=== PATIENT | female | born 2000 | race Caucasian/White ===

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

== ENCOUNTER 2018-01-21 20:31 | Emergency (ER) | payer BC ==
[~2018-01-21] VITALS: Ht 167.6 cm; Wt 81.6 kg
[~2018-01-21 20:31] MED LIST changes: +TRAZ-189 PO; -TRAZ-28 PO
--- NOTE | 2018-01-21 20:54 | ED Neurological Problem ---
General Chief Complaint: Neurological Problems Stated Complaint: SEIZURE/R SIDE PAIN/INJ Source: patient Exam Limitations: no limitations History of Present Illness Date Seen by Provider: Jan 21, 2018 Time Seen by Provider: 20:52 Initial Comments To ER per private vehicle from the dorms at [facility] [employer] [facility] with reports of seizure activity. She has a known seizure disorder and takes medication for this. Tonight she had one of her typical seizures, fell and struck the right side of her chest on something. She has pain to the right lateral lower chest wall. EMS was on scene but she refused EMS transport. Timing/Duration: 1-3 hours Allergies and Home Medications Allergies Coded Allergies: Sulfa (Sulfonamide Antibiotics) (Unverified Adverse Reaction, Unknown, ) Home Medications Lamotrigine 100 Mg Tablet, 100 MG PO BID, (Reported) Topiramate 100 Mg Tablet, 100 MG PO BID, (Reported) Trazodone HCl 50 Mg Tablet, 50 MG PO HS, (Reported) Patient Home Medication List Home Medication List Reviewed: Yes Review of Systems Review of Systems Constitutional: see HPI Eyes: No Symptoms Reported Ears, Nose, Mouth, Throat: no symptoms reported Respiratory: no symptoms reported Cardiovascular: no symptoms reported Genitourinary: no symptoms reported Musculoskeletal: no symptoms reported Skin: no symptoms reported Psychiatric/Neurological: See HPI, Tonic Clonic Seizures Endocrine: No Symptoms Reported Past Vduxszk-Jwuwcf-Fkwowu Hx Patient Social History 2nd Hand Smoke Exposure: No Recent Foreign Travel: No Contact w/Someone Who Travel: No Recent Hopitalizations: No Immunizations Up To Date PED Vaccines UTD: Yes Seasonal Allergies Seasonal Allergies: No Past Medical History Surgeries: Yes Gallbladder Respiratory: No Cardiac: No Neurological: Yes (SEIZURES SINCE AGE 14) Headaches /Migraines, Seizure Disorder Female Reproductive Disorders: Denies Genitourinary: No Gastrointestinal: No Musculoskeletal: No Endocrine: No HEENT: No Cancer: No Psychosocial: No Integumentary: No Blood Disorders: No Family Medical History No Pertinent Family Hx Physical Exam Vital Signs Vital Signs - First Documented 01/21/18 20:35 Temp 97.8 Pulse 80 Resp 18 B/P (MAP) 128/76 O2 Delivery Room Air Capillary Refill : Height, Weight, BMI Height: 5'6.00" Weight: 180lbs. oz. 81.090010ko; 28.12 BMI Method:Stated General Appearance: WD/WN, no apparent distress, other (lethargic but keeps her eyes open and converses with me. oriented to person place time and situation) HEENT: PERRL/EOMI, normal ENT inspection, TMs normal Neck: non-tender, full range of motion Respiratory: no respiratory distress, no accessory muscle use, other (there is a palm sized abrasion to the right lateral lower chest wall with tenderness to palpation.) Cardiovascular: regular rate, rhythm, no murmur Gastrointestinal: normal bowel sounds, non tender, soft Neurologic/Psychiatric: alert, normal mood/affect, oriented x 3 Crainal Nerves: normal hearing, normal speech, PERRL Skin: normal color, warm/dry Progress/Results/Core Measures Results/Orders My Orders Orders - ROBERTO BOWEN APRN Ribs/Unilateral With Chest (01/21/18 20:50) Vital Signs/I&O 01/21/18 20:35 Temp 97.8 Pulse 80 Resp 18 B/P (MAP) 128/76 O2 Delivery Room Air Departure Impression Primary Impression: Chest wall contusion Additional Impression: Seizure disorder Disposition: 01 HOME, SELF-CARE Condition: Stable Departure-Patient Inst. Decision time for Depature: 21:38 Referrals: [facility] (PCP/Family) Primary Care Physician Patient Instructions: Contusion (DC), Seizures, Adult (DC) Add. Discharge Instructions: 1. Tylenol and Motrin for pain control 2. Return to ER for any lightheadedness shortness of breath worsening pain or other concerns. All discharge instructions reviewed with patient and/or family. Voiced understanding. ROBERTO BOWEN APRN Jan 21, 2018 20:54
--- NOTE | 2018-01-21 21:39 | Diagnostic Imaging Report ---
INDICATION: Seizure and right rib pain. TIME OF EXAM: 9:39 PM FINDINGS: No displaced rib fracture is identified. No parenchymal contusion is seen. No effusion or pneumothorax is identified. IMPRESSION: No acute feature is detected. Dictated by: Dictated on workstation # [id number]
== END 2018-01-21 21:48 | disposition home or self-care (01) ==
LOC: EDUNIT# 20:31 → ER 20:32
DX: S20.211A Contusion of right front wall of thorax, initial encounter (principal); G40.909 Epilepsy, unspecified, not intractable, without status epilepticus; G43.909 Migraine, unspecified, not intractable, without status migrainosus; Z88.2 Allergy status to sulfonamides; W19.XXXA Unspecified fall, initial encounter; W22.09XA Striking against other stationary object, initial encounter
CPT/HCPCS: 71101

== ENCOUNTER 2018-02-11 17:55 | Emergency (ER) | payer BC ==
[~2018-02-11] VITALS: Ht 167.6 cm; Wt 81.6 kg
[2018-02-11] MEDS ORDERED: KETOROLAC 60 MG/2 ML VIAL IM STA (18:19)
--- NOTE | 2018-02-11 18:29 | ED Neurological Problem ---
General Chief Complaint: Neurological Problems Stated Complaint: OSMANFELL ON STEP STOOL,SOB Source: patient Exam Limitations: no limitations History of Present Illness Date Seen by Provider: Feb 11, 2018 Time Seen by Provider: 18:15 Initial Comments Here with report of seizure at home today. She apparently fell onto a small plastic step stool and hit her chest centrally in the right upper side. She does have known seizure disorder and states that she is taking her meds as directed. She is a student at [employer]. Last seizure was approximately a month ago. It is not, and she was seen multiple times during the last school year for breakthrough seizures. Denies other injury. Did have prodrome of nosebleed which is typical for her. Seizure apparently lasted several minutes. This is described as her clutching to her chest or her throat. Timing/Duration: episodic, other (onset approximately an hour ago and resolved. Anterior chest wall pain continues.) Severity: moderate Associated Symptoms: No fatigue, No muscle spasms, No nausea/vomiting, No vision changes, No weakness Allergies and Home Medications Allergies Coded Allergies: Sulfa (Sulfonamide Antibiotics) (Unverified Adverse Reaction, Unknown, ) Home Medications Lamotrigine 100 Mg Tablet, 100 MG PO BID, (Reported) Topiramate 100 Mg Tablet, 100 MG PO BID, (Reported) Trazodone HCl 50 Mg Tablet, 50 MG PO HS, (Reported) Patient Home Medication List Home Medication List Reviewed: Yes Review of Systems Review of Systems Constitutional: see HPI; No chills, No fever Eyes: No Symptoms Reported Ears, Nose, Mouth, Throat: see HPI, epistaxis; denies mouth swelling, denies loose teeth Respiratory: No cough; other (mild pain with deep breathing) Cardiovascular: see HPI, chest pain (anterior upper right sided); No palpitations Gastrointestinal: No abdominal pain, No nausea, No vomiting LMP: Feb 11, 2018 Musculoskeletal: joint pain, muscle pain Skin: no symptoms reported Psychiatric/Neurological: See HPI; Denies Headache; Tonic Clonic Seizures Past Qgjhhfs-Jrirhx-Nlbwjm Hx Past Med/Social Hx: Reviewed Nursing Past Med/Soc Hx Patient Social History Alcohol Use: Denies Use Recreational Drug Use: No Smoking Status: Never a Smoker 2nd Hand Smoke Exposure: No Recent Foreign Travel: No Contact w/Someone Who Travel: No Recent Hopitalizations: No Physical Abuse: No Sexual Abuse: No Immunizations Up To Date PED Vaccines UTD: Yes Seasonal Allergies Seasonal Allergies: No Past Medical History Surgeries: Yes Gallbladder Respiratory: No Cardiac: No Neurological: Yes (SEIZURES SINCE AGE 14) Headaches /Migraines, Seizure Disorder Female Reproductive Disorders: Denies Genitourinary: No Gastrointestinal: No Musculoskeletal: No Endocrine: No HEENT: No Cancer: No Psychosocial: No Integumentary: No Blood Disorders: No Family Medical History Reviewed Nursing Family Hx No Pertinent Family Hx Physical Exam Vital Signs Vital Signs - First Documented 02/11/18 18:15 Temp 98.5 Pulse 86 Resp 18 B/P (MAP) 147/79 Capillary Refill : Height, Weight, BMI Height: 5'6.00" Weight: 180lbs. oz. 81.369132th; 28.12 BMI Method:Stated General Appearance: WD/WN, no apparent distress HEENT: PERRL/EOMI, pharynx normal, other (old blood noted bilateral naris without active bleeding) Neck: non-tender, full range of motion, supple, normal inspection Respiratory: lungs clear, normal breath sounds, other (tender to the right upper anterior chest wall without deformity or contusion noted.) Cardiovascular: regular rate, rhythm, no murmur Gastrointestinal: non tender, soft Back: normal inspection, no CVA tenderness, no vertebral tenderness Neurologic/Psychiatric: alert, oriented x 3 Crainal Nerves: normal hearing, normal speech, PERRL Coordination/Gait: normal gait Motor/Sensory: no motor deficit, no sensory deficit Skin: normal color, warm/dry; No ecchymosis Progress/Results/Core Measures Results/Orders My Orders Orders - MARCO BOLTON MD Ketorolac Injection (Toradol Injection) (02/11/18 18:19) Ribs, Right 2-3 Views (02/11/18 18:19) Chest Pa/Lat (2 View) (02/11/18 ) Vital Signs/I&O 02/11/18 18:15 Temp 98.5 Pulse 86 Resp 18 B/P (MAP) 147/79 Progress Progress Note : Progress Note Seen and evaluated. Chest x-ray and right rib series ordered. Toradol 60 mg IM ordered. Monitor patient. 1913: No acute findings. Overall much better. Discharged home with return precautions. Patient verbalized understanding instructions and agreement with plan. Diagnostic Imaging Diagonstic Imaging: Xray Plain Films/CT/US/NM/MRI: chest Comments NAME: ESCOBAR ODOM [facility] REC#: [id number] PT STATUS: REG ER : 2000 PHYSICIAN: MARCO BOLTON MD ADMIT DATE: 02/11/18/ER Signed Date of Exam: 02/11/18 CHEST PA/LAT (2 VIEW) INDICATION: Seizure. Sternal and right rib pain. EXAMINATION: PA and lateral views of the chest. FINDINGS: The heart size and vascularity are normal. Lungs are clear. There is no effusion. There is no acute bony abnormality. IMPRESSION: No acute abnormality is seen. There is no change from 01/21/2018. Dictated by: Dictated on workstation # [id number] Dict: 02/11/181900 Trans: 02/11/181902 Interpreted by: ISABELA RIVERA MD Electronically signed by: ISABELA RIVERA MD 02/11/181902 Diagonstic Imaging: Xray Plain Films/CT/US/NM/MRI: other Comments NAME: ESCOBAR ODOM [facility] REC#: [id number] PT STATUS: REG ER : 2000 PHYSICIAN: MARCO BOLTON MD ADMIT DATE: 02/11/18/ER Signed Date of Exam: 02/11/18 RIBS, RIGHT 2-3 VIEWS INDICATION: Seizure, right rib pain. FINDINGS: Three views of the right ribs show no fracture or other acute bony abnormality. There is no effusion or pneumothorax. IMPRESSION: Normal right ribs. Dictated by: Dictated on workstation # [id number] Dict: 02/11/181858 Trans: 02/11/181904 Interpreted by: ISABELA RIVERA MD Electronically signed by: ISABELA RIVERA MD 02/11/181904 Departure Impression Primary Impression: Chest wall contusion Qualified Codes: S20.211A - Contusion of right front wall of thorax, initial encounter Additional Impression: Seizure Disposition: 01 HOME, SELF-CARE Condition: Improved Departure-Patient Inst. Decision time for Depature: 19:14 Referrals: [facility] (PCP/Family) Primary Care Physician Patient Instructions: CHEST CONTUSION, Seizures, Adult (DC) Add. Discharge Instructions: All discharge instructions reviewed with patient and/or family. Voiced understanding. You may take ibuprofen 600 or 800 mg every 8 hours as needed for pain. You may take Tylenol/acetaminophen 1000 mg every 8 hours as needed for pain. Continue your seizure medications. Follow-up with your Dr. in a few days for recheck. Return for worse pain, fever, vomiting, weakness, breathing problems or other concerns as needed. Drink plenty of fluids. Copy Copies To 1: VICTORIA CARVER MD, TIMOTHY D MD Feb 11, 2018 18:29
--- NOTE | 2018-02-11 19:04 | Diagnostic Imaging Report ---
INDICATION: Seizure. Sternal and right rib pain. EXAMINATION: PA and lateral views of the chest. FINDINGS: The heart size and vascularity are normal. Lungs are clear. There is no effusion. There is no acute bony abnormality. IMPRESSION: No acute abnormality is seen. There is no change from 01/21/2018. Dictated by: Dictated on workstation # [id number]
--- NOTE | 2018-02-11 19:05 | Diagnostic Imaging Report ---
INDICATION: Seizure, right rib pain. FINDINGS: Three views of the right ribs show no fracture or other acute bony abnormality. There is no effusion or pneumothorax. IMPRESSION: Normal right ribs. Dictated by: Dictated on workstation # [id number]
[2018-02-11 19:18] VITALS: BP 147/79
== END 2018-02-11 19:18 | disposition home or self-care (01) ==
LOC: EDUNIT# 17:55 → ER 17:57
DX: S20.211A Contusion of right front wall of thorax, initial encounter (principal); G40.909 Epilepsy, unspecified, not intractable, without status epilepticus; G43.909 Migraine, unspecified, not intractable, without status migrainosus; Z88.2 Allergy status to sulfonamides; W01.190A Fall on same level from slipping, tripping and stumbling with subsequent striking against furniture, initial encounter; Y92.009 Unspecified place in unspecified non-institutional (private) residence as the place of occurrence of the external cause
CPT/HCPCS: 71046; 71100; 96372

== ENCOUNTER 2018-02-25 21:06 | Emergency (ER) | payer BC ==
[~2018-02-25] VITALS: Ht 167.6 cm; Wt 81.6 kg
[2018-02-25 21:23] LABS: BASOPHILS % (AUTO) 0 % (0-10); EOSINOPHILS # (AUTO) 0.1 10^3/uL (0.0-0.3); EOSINOPHILS % (AUTO) 1 % (0-10); HEMATOCRIT 41 % (35-52); HEMOGLOBIN 13.6 G/DL (11.5-16.0); LYMPHOCYTES # (AUTO) 2.9 X 10^3 (1.0-4.0); LYMPHOCYTES % (AUTO) 35 % (12-44); MEAN CORPUSCULAR HEMOGLOBIN 29 PG (25-34); MEAN CORPUSCULAR HGB CONC 33 G/DL (32-36); MEAN CORPUSCULAR VOLUME 87 FL (80-99); MEAN PLATELET VOLUME 9.1 FL (7.4-10.4); MONOCYTES # (AUTO) 0.8 X 10^3 (0.0-1.0); MONOCYTES % (AUTO) 9 % (0-12); NEUTROPHILS # (AUTO) 4.7 X 10^3 (1.8-7.8); NEUTROPHILS % (AUTO) 56 % (42-75); PLATELET COUNT 306 10^3/uL (130-400); RED BLOOD COUNT 4.67 10^6/uL (4.35-5.85); RED CELL DISTRIBUTION WIDTH 12.2 % (10.0-14.5); WHITE BLOOD COUNT 8.5 10^3/uL (4.3-11.0)
[2018-02-25 21:40] LABS: ALANINE AMINOTRANSFERASE 20 U/L (0-55); ALBUMIN 4.4 GM/DL (3.2-4.5); ALKALINE PHOSPHATASE 88 U/L (40-136); BILIRUBIN,TOTAL 0.3 MG/DL (0.1-1.0); BUN/CREATININE RATIO 12; CALCIUM 9.9 MG/DL (8.5-10.1); CARBON DIOXIDE 23 MMOL/L (21-32); CHLORIDE 102 MMOL/L (98-107); CREATININE SERUM 0.82 MG/DL (0.60-1.30); GFR ESTIMATED > 60; GLUCOSE 106 MG/DL (70-105); POTASSIUM 3.7 MMOL/L (3.6-5.0); SODIUM 137 MMOL/L (135-145); TOTAL PROTEIN 8.5 GM/DL (6.4-8.2)
[2018-02-25 21:42] LABS: BILIRUBIN,URINE NEGATIVE (NEGATIVE); CLARITY,URINE CLEAR; COLOR,URINE YELLOW; GLUCOSE, URINE (UA) NEGATIVE (NEGATIVE); KETONES,URINE NEGATIVE (NEGATIVE); LEUKOCYTE ESTERASE ,URINE NEGATIVE (NEGATIVE); NITRITE,URINE NEGATIVE (NEGATIVE); PH,URINE 7 (5-9); PROTEIN,URINE NEGATIVE (NEGATIVE); UROBILINOGEN,URINE NORMAL (NORMAL)
[2018-02-25 21:57] LABS: BACTERIA,URINE MODERATE /HPF; RBC,URINE 0-2 /HPF; WBC,URINE 0-2 /HPF
--- NOTE | 2018-02-25 22:20 | ED Neurological Problem ---
General Chief Complaint: Neurological Problems Stated Complaint: SEIZURE Source: patient Exam Limitations: no limitations History of Present Illness Date Seen by Provider: Feb 25, 2018 Time Seen by Provider: 21:07 Initial Comments The patient is a 17 year old female who present to the emergency room with reports of a seizure in her dorm room this evening and a second seizure in the car prior to coming into the ER. She has a known seizure disorder and reports taking Lamictal for seizures. She has an appointment with her neurologist next week. She is alert and oriented on arrival to the emergency room. Timing/Duration: 1/2 hour Associated Symptoms: seizures Allergies and Home Medications Allergies Coded Allergies: Sulfa (Sulfonamide Antibiotics) (Unverified Adverse Reaction, Unknown, ) Home Medications Lamotrigine 100 Mg Tablet, 100 MG PO BID, (Reported) Topiramate 100 Mg Tablet, 100 MG PO BID, (Reported) Trazodone HCl 50 Mg Tablet, 50 MG PO HS, (Reported) Patient Home Medication List Home Medication List Reviewed: Yes Review of Systems Review of Systems Constitutional: no symptoms reported, see HPI Psychiatric/Neurological: See HPI, Tonic Clonic Seizures All Other Systems Reviewed Negative Unless Noted: Yes Past Sqzilzx-Hyeuit-Rwfmxr Hx Past Med/Social Hx: Reviewed Nursing Past Med/Soc Hx Patient Social History 2nd Hand Smoke Exposure: No Recent Foreign Travel: No Contact w/Someone Who Travel: No Recent Hopitalizations: No Immunizations Up To Date PED Vaccines UTD: Yes Seasonal Allergies Seasonal Allergies: No Past Medical History Surgeries: Yes Gallbladder Respiratory: No Cardiac: No Neurological: Yes (SEIZURES SINCE AGE 14) Headaches /Migraines, Seizure Disorder Female Reproductive Disorders: Denies Genitourinary: No Gastrointestinal: No Musculoskeletal: No Endocrine: No HEENT: No Cancer: No Psychosocial: No Integumentary: No Blood Disorders: No Family Medical History Reviewed Nursing Family Hx No Pertinent Family Hx Physical Exam Vital Signs Vital Signs - First Documented 02/25/18 02/25/18 21:10 22:45 Temp 98.6 Pulse 89 Resp 12 B/P (MAP) 125/80 Pulse Ox 98 Capillary Refill : Height, Weight, BMI Height: 5'6.00" Weight: 180lbs. oz. 81.893434ur; 28.12 BMI Method:Stated General Appearance: WD/WN, no apparent distress Neck: non-tender, full range of motion, supple, normal inspection Respiratory: chest non-tender, lungs clear, normal breath sounds, no respiratory distress, no accessory muscle use, respiratory distress Cardiovascular: normal peripheral pulses, regular rate, rhythm, no edema, no gallop, no JVD, no murmur Gastrointestinal: normal bowel sounds, non tender, soft, no organomegaly, no pulsatile mass Neurologic/Psychiatric: alert, normal mood/affect, oriented x 3 Crainal Nerves: normal hearing, normal speech, PERRL Skin: normal color, warm/dry Progress/Results/Core Measures Results/Orders Lab Results Laboratory Tests Test 02/25/18 21:15 02/25/18 21:30 Range/Units White Blood Count 8.5 4.3-11.0 10^3/uL Red Blood Count 4.67 4.35-5.85 10^6/uL Hemoglobin 13.6 11.5-16.0 G/DL Hematocrit 41 35-52 % Mean Corpuscular Volume 87 80-99 FL Mean Corpuscular Hemoglobin 29 25-34 PG Mean Corpuscular Hemoglobin Concent 33 32-36 G/DL Red Cell Distribution Width 12.2 10.0-14.5 % Platelet Count 306 130-400 10^3/uL Mean Platelet Volume 9.1 7.4-10.4 FL Neutrophils (%) (Auto) 56 42-75 % Lymphocytes (%) (Auto) 35 12-44 % Monocytes (%) (Auto) 9 0-12 % Eosinophils (%) (Auto) 1 0-10 % Basophils (%) (Auto) 0 0-10 % Neutrophils # (Auto) 4.7 1.8-7.8 X 10^3 Lymphocytes # (Auto) 2.9 1.0-4.0 X 10^3 Monocytes # (Auto) 0.8 0.0-1.0 X 10^3 Eosinophils # (Auto) 0.1 0.0-0.3 10^3/uL Basophils # (Auto) 0.0 0.0-0.1 10^3/uL Sodium Level 137 135-145 MMOL/L Potassium Level 3.7 3.6-5.0 MMOL/L Chloride Level 102 98-107 MMOL/L Carbon Dioxide Level 23 21-32 MMOL/L Anion Gap 12 5-14 MMOL/L Blood Urea Nitrogen 10 7-18 MG/DL Creatinine 0.82 0.60-1.30 MG/DL Estimat Glomerular Filtration Rate > 60 BUN/Creatinine Ratio 12 Glucose Level 106 H 70-105 MG/DL Calcium Level 9.9 8.5-10.1 MG/DL Corrected Calcium 9.6 8.5-10.1 MG/DL Total Bilirubin 0.3 0.1-1.0 MG/DL Aspartate Amino Transf (AST/SGOT) 20 5-34 U/L Alanine Aminotransferase (ALT/SGPT) 20 0-55 U/L Alkaline Phosphatase 88 40-136 U/L Total Protein 8.5 H 6.4-8.2 GM/DL Albumin 4.4 3.2-4.5 GM/DL Urine Color YELLOW Urine Clarity CLEAR Urine pH 7 5-9 Urine Specific Ferguson 1.005 L 1.016-1.022 Urine Protein NEGATIVE NEGATIVE Urine Glucose (UA) NEGATIVE NEGATIVE Urine Ketones NEGATIVE NEGATIVE Urine Nitrite NEGATIVE NEGATIVE Urine Bilirubin NEGATIVE NEGATIVE Urine Urobilinogen NORMAL NORMAL MG/DL Urine Leukocyte Esterase NEGATIVE NEGATIVE Urine RBC (Auto) NEGATIVE NEGATIVE Urine RBC 0-2 /HPF Urine WBC 0-2 /HPF Urine Squamous Epithelial Cells 5-10 /HPF Urine Crystals NONE /LPF Urine Bacteria MODERATE H /HPF Urine Casts NONE /LPF Urine Mucus NEGATIVE /LPF Urine Culture Indicated NO My Orders Orders - IRINEO PAYAN Cbc With Automated Diff (02/25/18 21:11) Comprehensive Metabolic Panel (02/25/18 21:11) Ua Culture If Indicated (02/25/18 21:12) Vital Signs/I&O 02/25/18 02/25/18 21:10 22:45 Temp 98.6 98.4 Pulse 89 96 Resp 12 12 B/P (MAP) 125/80 Pulse Ox 98 Progress Progress Note : Time: 22:10 Progress Note I have seen and evaluated the patient. I have informed her of normal imaging studies. She has remained seizure free during her time in the ER. She agrees with plans of care, return precautions were given. Departure Impression Primary Impression: Seizure Disposition: 01 HOME, SELF-CARE Condition: Stable/Unchanged Departure-Patient Inst. Decision time for Depature: 22:19 Referrals: [facility] (PCP/Family) Primary Care Physician Patient Instructions: Epilepsy in Adults Add. Discharge Instructions: Continue your home medication as previously prescribed. Follow-up with your neurologist as scheduled. Return back to the emergency room for any worsening symptoms or concerns as needed. All discharge instructions reviewed with patient and/or family. Voiced understanding. IRINEO PAYAN Feb 25, 2018 22:19
== END 2018-02-25 22:45 | disposition home or self-care (01) ==
LOC: EDUNIT# 21:06 → ER 21:06
DX: G40.909 Epilepsy, unspecified, not intractable, without status epilepticus (principal); G43.909 Migraine, unspecified, not intractable, without status migrainosus; Z88.2 Allergy status to sulfonamides
CPT/HCPCS: 36415; 80053; 81000; 85025; 99283

== ENCOUNTER 2018-03-27 16:21 | Emergency (ER) | payer BC ==
[~2018-03-27] VITALS: Ht 167.6 cm; Wt 81.6 kg
[2018-03-27] MEDS ORDERED: LACTATED RINGERS 1,000 ML IV ONE (17:12)
[2018-03-27] MEDS ORDERED: ONDANSETRON 4 MG/2 ML (SDV) Z0FRAN IVP ONE (17:15)
[2018-03-27] MEDS ORDERED: KETOROLAC 30 MG/ML VIAL IVP ONE (17:15)
[2018-03-27 17:21] LABS: BILIRUBIN,URINE NEGATIVE (NEGATIVE); CLARITY,URINE CLEAR; COLOR,URINE YELLOW; GLUCOSE, URINE (UA) NEGATIVE (NEGATIVE); KETONES,URINE NEGATIVE (NEGATIVE); LEUKOCYTE ESTERASE ,URINE NEGATIVE (NEGATIVE); NITRITE,URINE NEGATIVE (NEGATIVE); PH,URINE 7 (5-9); PROTEIN,URINE NEGATIVE (NEGATIVE); UROBILINOGEN,URINE 1 MG/DL (NORMAL)
--- NOTE | 2018-03-27 17:22 | ED Abdominal Pain ---
General Chief Complaint: Abdominal/GI Problems Stated Complaint: ABD PAIN Nursing Triage Note: AMB TO ROOM FROM [facility]. WITH C/O ABD PAIN Source of Information: Patient, Other Exam Limitations: No Limitations (GWENDOLYN FIGUEROA) History of Present Illness Date Seen by Provider: Mar 27, 2018 Time Seen by Provider: 17:10 Initial Comments Patient presents to ER by private conveyance from the clinic at [facility]. She woke up early this morning and around 7 or 8 and started having some periumbilical abdominal pain. It last for several hours and went away. She said her pain came back and her right flank around 2:00 this afternoon. She's had no fevers chills nausea or vomiting until recently she's had some nausea. She says she had some fevers over the weekend with some cough since thought she might of had the flu. She says she's no longer coughing now. She has no shortness of breath history of asthma or smoking. She does not drink alcohol. She does have a history of seizure activity with about one week. She's been on her dose of 200 mg Lamictal twice a day for the past couple months stable and not missing any doses. She follows with a doctor in [place], [place]. She had a bowel movement this morning which was normal formed. No diarrhea. Last oral intake 1300 today. (GWENDOLYN FIGUEROA) Allergies and Home Medications Allergies Coded Allergies: Sulfa (Sulfonamide Antibiotics) (Unverified Adverse Reaction, Unknown, ) Home Medications Cefdinir 300 Mg Capsule, 300 MG PO BID Prescribed by: PATRICK SAINZ on 03/27/18 183 Lamotrigine 100 Mg Tablet, 100 MG PO BID, (Reported) Topiramate 100 Mg Tablet, 100 MG PO BID, (Reported) Trazodone HCl 50 Mg Tablet, 50 MG PO HS, (Reported) Patient Home Medication List Home Medication List Reviewed: Yes (GWENDOLYN FIGUEROA) Review of Systems Review of Systems Constitutional: No chills, No diaphoresis EENTM: No Blurred Vision, No Double Vision Respiratory: Denies Cough, Denies Shortness of Air Cardiovascular: Denies Chest Pain, Denies Lightheadedness Gastrointestinal: Denies Constipated, Denies Diarrhea; Nausea; Denies Vomiting Genitourinary: Denies Burning, Denies Discharge Musculoskeletal: No back pain, No joint pain Skin: No pruritus, No rash Psychiatric/Neurological: Denies Headache, Denies Numbness, Denies Paresthesia (GWENDOLYN FIGUEROA) Past Bpnhwty-Ifzlom-Krpntx Hx Patient Social History Alcohol Use: Occasionally Uses Recreational Drug Use: No Smoking Status: Never a Smoker 2nd Hand Smoke Exposure: No Recent Foreign Travel: No Contact w/Someone Who Travel: No Recent Infectious Disease Expo: No Recent Hopitalizations: No (GWENDOLYN FIGUEROA) Immunizations Up To Date PED Vaccines UTD: Yes (GWENDOLYN FIGUEROA) Seasonal Allergies Seasonal Allergies: No (GWENDOLYN FIGUEROA) Past Medical History Surgeries: Yes Gallbladder Respiratory: No Cardiac: No Neurological: Yes (SEIZURES SINCE AGE 14) Headaches /Migraines, Seizure Disorder Female Reproductive Disorders: Denies Genitourinary: No Gastrointestinal: No Musculoskeletal: No Endocrine: No HEENT: No Cancer: No Psychosocial: No Integumentary: No Blood Disorders: No (GWENDOLYN FIGUEROA) Family Medical History No Pertinent Family Hx (GWENDOLYN FIGUEROA) Physical Exam Vital Signs Vital Signs - First Documented 03/27/18 17:05 Temp 98.4 Pulse 92 Resp 18 (YAJAIRA,PATRICK K DO) Vital Signs Capillary Refill : (GWENDOLYN FIGUEROA) Height/Weight/BMI Height: 5'6.00" Weight: 180lbs. oz. 81.220000bk; 28.12 BMI Method:Stated General Appearance: WD/WN, no apparent distress HEENT: PERRL/EOMI, normal ENT inspection, TMs normal, pharynx normal Neck: non-tender, full range of motion Respiratory: chest non-tender, lungs clear, normal breath sounds, no respiratory distress, no accessory muscle use Cardiovascular: normal peripheral pulses, regular rate, rhythm Peripheral Pulses: 2+ Radial Pulses (R), 2+ Radial Pulses (L) Gastrointestinal: normal bowel sounds (fairly active), guarding, rebound ( right lower quadrant), tenderness (right lower quadrant), other (psoas sign and Rovsing's positive) Neurologic/Psychiatric: alert, normal mood/affect, oriented x 3 Skin: normal color, warm/dry (GWENDOLYN FIGUEROA) Progress/Results/Core Measures Results/Orders Lab Results Laboratory Tests Test 03/27/18 17:14 Range/Units Urine Color YELLOW Urine Clarity CLEAR Urine pH 7 5-9 Urine Specific [place] 1.010 L 1.016-1.022 Urine Protein NEGATIVE NEGATIVE Urine Glucose (UA) NEGATIVE NEGATIVE Urine Ketones NEGATIVE NEGATIVE Urine Nitrite NEGATIVE NEGATIVE Urine Bilirubin NEGATIVE NEGATIVE Urine Urobilinogen 1 NORMAL MG/DL Urine Leukocyte Esterase NEGATIVE NEGATIVE Urine RBC (Auto) NEGATIVE NEGATIVE Urine RBC NONE /HPF Urine WBC 0-2 /HPF Urine Squamous Epithelial Cells 0-2 /HPF Urine Crystals NONE /LPF Urine Bacteria TRACE /HPF Urine Casts NONE /LPF Urine Mucus NEGATIVE /LPF Urine Culture Indicated NO Urine Opiates Screen NEGATIVE NEGATIVE Urine Oxycodone Screen NEGATIVE NEGATIVE Urine Methadone Screen NEGATIVE NEGATIVE Urine Propoxyphene Screen NEGATIVE NEGATIVE Urine Barbiturates Screen NEGATIVE NEGATIVE Ur Tricyclic Antidepressants Screen NEGATIVE NEGATIVE Urine Phencyclidine Screen NEGATIVE NEGATIVE Urine Amphetamines Screen NEGATIVE NEGATIVE Urine Methamphetamines Screen NEGATIVE NEGATIVE Urine Benzodiazepines Screen NEGATIVE NEGATIVE Urine Cocaine Screen NEGATIVE NEGATIVE Urine Cannabinoids Screen NEGATIVE NEGATIVE (PATRICK SAINZ DO) Medications Given in ED Current Medications Medications Dose Ordered Sig/Bulmaro Route Start Time Stop Time Status Last Admin Dose Admin Iohexol 100 ml ONCE ONCE IV 03/27/18 17:30 03/27/18 17:31 DC 03/27/18 17:46 100 ML Ketorolac Tromethamine 30 mg ONCE ONCE IVP 03/27/18 17:15 03/27/18 17:16 DC 03/27/18 17:25 30 MG Lactated Ringer's 1,000 ml @ 0 mls/hr Q0M ONCE IV 03/27/18 17:12 03/27/18 17:15 DC 03/27/18 17:25 0 MLS/HR Ondansetron HCl 4 mg ONCE ONCE IVP 03/27/18 17:15 03/27/18 17:16 DC 03/27/18 17:25 4 MG Sodium Chloride 250 ml ONCE ONCE IV 03/27/18 17:30 03/27/18 17:31 DC 03/27/18 17:46 80 ML (PATRICK SAINZ DO) Vital Signs/I&O 03/27/18 17:05 Temp 98.4 Pulse 92 Resp 18 B/P (MAP) (PATRICK SAINZ DO) Progress Progress Note : Time: 17:22 Progress Note Toradol, Zofran and a liter of LR. At this point her labs and vital signs are all normal. We'll hold off doing any antibiotics that we will do a CT scan because she has a rather convincing examination. We will keep her nothing by mouth for now and since she usually takes her Lamictal about this time and she' s already had one seizure today I would consider giving her 500 of Keppra IV just to cover. Labs it 1626 today collected and sent to our ML are were faxed over demonstrating a white count of 5.8 thousand, hemoglobin 13.6, platelet count 341 ,000. Glucose of 87, creatinine of 0.7, sodium of 140, potassium of 3.7, chloride 102, bicarbonate 29, calcium 9.5, AST ALT alkaline phosphatase are unremarkable and a bili of 0.4. Manual differential shows 43% neutrophils 50% lymphocytes, 3% monos, 3% eos, 1% basophils. RBC morphology normal. (GWENDOLYN FIGUEROA) Progress Note : Progress Note 1809--ASSUMED CARE FROM DR. FIGUEROA, CT RESULTS PENDING. PT HAS NO COMPLAINTS AT THIS TIME AND IS SMILING AND TALKING WITH 2 FEMALES IN ROOM. PT STATES SHE HAS ZOFRAN AT HOME PT ADVISED TO RETURN TO ER IF SHE DEVELOPS FEVER, INCREASED PAIN, VOMITING UNCONTROLLABLY OR ANY NEW SYMPTOMS, OTHERWISE, FOLLOW UP WITH [facility] IN 2 DAYS. (PATRICK SAINZ DO) Diagnostic Imaging Diagonstic Imaging: CT (with contrast) Plain Films/CT/US/NM/MRI: abdomen, pelvis Reviewed: Reviewed by Me (GWENDOLYN FIGUEROA) Comments CT ABDOMEN/PELVIS--FEW REACTIVE LYMPH NODES IN RLQ, NORMAL APPEARING APPENDIX, NO OTHER ACUTE PROCESS, PER RADIOLOGIST REPORT @ 181 Reviewed: Reviewed by Me (PATRICK SAINZ DO) Transfer of Care Time: 18:10 Care transferred to: Dr. Sainz (GWENDOLYN FIGUEROA) Departure Impression Primary Impression: Mesenteric adenitis Additional Impression: Abdominal pain Disposition: 01 HOME, SELF-CARE Condition: Improved Departure-Patient Inst. Referrals: [facility] (PCP/Family) Primary Care Physician Patient Instructions: Acute Abdomen (Belly Pain), Child (DC), Mesenteric Lymphadenitis (DC) Add. Discharge Instructions: CLEAR LIQUIDS--WATER, BROTH, JELLO, GATORADE TOMORROW IF YOU ARE BETTER, ADD BRATS DIET TO CLEAR LIQUIDS--BANANAS, RICE, APPLESAUCE, TOAST, SALTINES TYLENOL AND MOTRIN NEEDED FOR PAIN TAKE YOUR ZOFRAN NEEDED FOR NAUSEA FOLLOW UP WITH [facility] IN 2 DAYS, OR SOONER IF WORSE, OR RETURN TO ER IF WORSE All discharge instructions reviewed with patient and/or family. Voiced understanding. Scripts Cefdinir (Cefdinir) 300 Mg Capsule 300 MG PO BID for FOR INFECTION, #20 CAP Prov: PATRICK SAINZ DO 03/27/18 GWENDOLYN FIGUEROA Mar 27, 2018 17:22 PATRICK SAINZ DO Mar 27, 2018 18:31
[2018-03-27 17:30] LABS: BACTERIA,URINE TRACE /HPF; SQUAMOUS EPITHELIAL CELL,UR 0-2 /HPF; WBC,URINE 0-2 /HPF
[2018-03-27] MEDS ORDERED: RECEIVED CONTRAST (Hold Metformin) IV SCH (17:30)
[2018-03-27] MEDS ORDERED: NS 250 ML (IVPB) BAG IV ONE (17:30)
[2018-03-27] MEDS ORDERED: IOHEXOL 350 MG/ML 100 ML (OMNIPAQUE 350) VIAL IV ONE (17:30)
[2018-03-27 17:40] LABS: AMPHETAMINE SCREEN, URINE NEGATIVE (NEGATIVE); BARBITURATE SCREEN URINE NEGATIVE (NEGATIVE); BENZODIAZEPINES SCREEN URINE NEGATIVE (NEGATIVE); CANNABINOID SCREEN, URINE NEGATIVE (NEGATIVE); COCAINE SCREEN URINE NEGATIVE (NEGATIVE); METHADONE STAT NEGATIVE (NEGATIVE); METHAMPHETAMINE SCREEN URINE S NEGATIVE (NEGATIVE); OPIATE SCREEN URINE NEGATIVE (NEGATIVE); OXYCODONE STAT NEGATIVE (NEGATIVE); PROPOXYPHENE STAT NEGATIVE (NEGATIVE); TRICYCLIC ANTIDEPRESSANTS SCRE NEGATIVE (NEGATIVE)
--- NOTE | 2018-03-27 18:12 | Diagnostic Imaging Report ---
PROCEDURE: CT abdomen and pelvis with contrast, rule out appendicitis. TECHNIQUE: Multiple contiguous axial images were obtained through the abdomen and pelvis after the administration of intravenous contrast. INDICATION: Right lower quadrant abdominal pain. COMPARISON: None. FINDINGS: What is thought to represent the appendix has a normal appearance. There is no inflammatory change within the right lower quadrant. There are a few prominent subcentimeter lymph nodes in the pericecal region, possibly mesenteric adenitis. There is no overt lymphadenopathy. There is mild constipation without obstruction. The lung bases are clear. The gallbladder is surgically absent. Solid organs and vascular structures in bowel are otherwise unremarkable. The uterus is intact. Distal ureters and urinary bladder are normal. There is no hernia. Osseous structures are age-appropriate. IMPRESSION: 1. Normal appendix. 2. Small subcentimeter lymph nodes in the right lower quadrant, possibly mesenteric adenitis. 3. Mild constipation. Dictated by: Dictated on workstation # [id number]
[2018-03-27] MEDS ORDERED: CEFD300C3 PO (18:31)
[2018-03-28] MEDS ORDERED: HYDR-3812 PO (18:40)
== END 2018-03-27 18:48 | disposition home or self-care (01) ==
LOC: EDUNIT# 16:21 → ER 16:22
DX: I88.0 Nonspecific mesenteric lymphadenitis (principal); R10.33 Periumbilical pain; G43.909 Migraine, unspecified, not intractable, without status migrainosus; G40.909 Epilepsy, unspecified, not intractable, without status epilepticus; Z88.2 Allergy status to sulfonamides
CPT/HCPCS: 74177; 80306; 81000; 84703; 96361; 96374; 96375

== ENCOUNTER 2018-03-28 17:24 | Emergency (ER) | payer BC ==
[~2018-03-28] VITALS: Ht 167.6 cm; Wt 81.6 kg
[~2018-03-28 17:24] MED LIST changes: +CEFD300C3 PO
[2018-03-28] MEDS ORDERED: NS IV 1000 ML 1,000 ML IV ONE (17:38)
[2018-03-28] MEDS ORDERED: KETOROLAC 30 MG/ML VIAL IVP ONE (17:45)
[2018-03-28] MEDS ORDERED: ONDANSETRON 4 MG/2 ML (SDV) Z0FRAN IVP ONE (17:45)
[2018-03-28 18:01] LABS: BASOPHILS % (AUTO) 1 % (0-10); EOSINOPHILS # (AUTO) 0.1 10^3/uL (0.0-0.3); EOSINOPHILS % (AUTO) 1 % (0-10); HEMATOCRIT 38 % (35-52); HEMOGLOBIN 12.7 G/DL (11.5-16.0); LYMPHOCYTES # (AUTO) 2.5 X 10^3 (1.0-4.0); LYMPHOCYTES % (AUTO) 44 % (12-44); MEAN CORPUSCULAR HEMOGLOBIN 29 PG (25-34); MEAN CORPUSCULAR HGB CONC 34 G/DL (32-36); MEAN CORPUSCULAR VOLUME 86 FL (80-99); MEAN PLATELET VOLUME 8.9 FL (7.4-10.4); MONOCYTES # (AUTO) 0.5 X 10^3 (0.0-1.0); MONOCYTES % (AUTO) 8 % (0-12); NEUTROPHILS # (AUTO) 2.6 X 10^3 (1.8-7.8); NEUTROPHILS % (AUTO) 46 % (42-75); PLATELET COUNT 313 10^3/uL (130-400); RED BLOOD COUNT 4.36 10^6/uL (4.35-5.85); WHITE BLOOD COUNT 5.7 10^3/uL (4.3-11.0)
[2018-03-28 18:19] LABS: ALANINE AMINOTRANSFERASE 45 U/L (0-55); ALBUMIN 4.3 GM/DL (3.2-4.5); ALKALINE PHOSPHATASE 105 U/L (40-136); BILIRUBIN,TOTAL 0.5 MG/DL (0.1-1.0); BUN/CREATININE RATIO 12; CALCIUM 9.6 MG/DL (8.5-10.1); CARBON DIOXIDE 24 MMOL/L (21-32); CHLORIDE 105 MMOL/L (98-107); CREATININE SERUM 0.77 MG/DL (0.60-1.30); GFR ESTIMATED > 60; GLUCOSE 88 MG/DL (70-105); LIPASE 39 U/L (8-78); POTASSIUM 3.8 MMOL/L (3.6-5.0); SODIUM 141 MMOL/L (135-145); TOTAL PROTEIN 7.8 GM/DL (6.4-8.2)
--- NOTE | 2018-03-28 18:20 | ED Abdominal Pain ---
General Chief Complaint: Abdominal/GI Problems Stated Complaint: ABD PAIN Nursing Triage Note: ARRIVED VIA AMB TO ROOM 06. WAS SEEN HERE YESTERDAY ET DX WITH MESINTERIC ADENITIS. STATE THE PAIN IS WORSE AND POINTS TO RLQ. STATES SHE HAS HAD WATER TODAY AND HAD A FEW BITES OF NACHOS. Source of Information: Patient, Old Records Exam Limitations: No Limitations (MAYDA FERNANDO MD) History of Present Illness Date Seen by Provider: Mar 28, 2018 Time Seen by Provider: 17:33 Initial Comments This 17-year-old young lady presents to the emergency room for a repeat visit regarding right lower quadrant abdominal pain. She was seen in this ER last night for similar symptoms. A UA and CT scan were performed. CT suggested mesenteric adenitis. Appendix was normal. Patient has been on a primarily clear liquid diet. She had a small amount of solid food at lunchtime. She has been consuming mostly water and Gatorade. She states it hurts after eating and drinking. She seems to be in some mild distress at this time. Last oral intake was 16:00. Last menstrual period was March 12 and she denies . She had some nausea and vomiting in route to the ER. She had some nausea this morning as well that she treated with Zofran. Last dose of ibuprofen was at 13:00. She denies constipation or diarrhea, but CT scan suggesting constipation last night. Pain is delayed after eating. She is afebrile. She has had her gallbladder removed. (MAYDA FERNANDO MD) Allergies and Home Medications Allergies Coded Allergies: Sulfa (Sulfonamide Antibiotics) (Unverified Adverse Reaction, Unknown, ) Home Medications Cefdinir 300 Mg Capsule, 300 MG PO BID Prescribed by: PATRICK GATES on 03/27/18 183 Hydrocodone/Acetaminophen 1 Each Tablet, 1 EACH PO Q4-6HR PRN for PAIN-MODERATE Prescribed by: MAYDA WALTON on 03/28/18 1840 Lamotrigine 100 Mg Tablet, 100 MG PO BID, (Reported) Topiramate 100 Mg Tablet, 100 MG PO BID, (Reported) Trazodone HCl 50 Mg Tablet, 50 MG PO HS, (Reported) Patient Home Medication List Home Medication List Reviewed: Yes (MAYDA FERNANDO MD) Review of Systems Review of Systems Constitutional: no symptoms reported EENTM: No Symptoms Reported Respiratory: No Symptoms Reported Cardiovascular: No Symptoms Reported Gastrointestinal: See HPI Genitourinary: No Symptoms Reported Musculoskeletal: no symptoms reported Skin: no symptoms reported Psychiatric/Neurological: No Symptoms Reported Endocrine: No Symptoms Reported Hematologic/Lymphatic: No Symptoms Reported (MAYDA FERNANDO MD) Past Pheqzav-Aamvrb-Vvegsz Hx Past Med/Social Hx: Reviewed Nursing Past Med/Soc Hx (MAYDA FERNANDO MD) Patient Social History 2nd Hand Smoke Exposure: No Recent Foreign Travel: No Contact w/Someone Who Travel: No Recent Infectious Disease Expo: No Recent Hopitalizations: No (MAYDA FERNANDO MD) Immunizations Up To Date PED Vaccines UTD: Yes (MAYDA FERNANDO MD) Seasonal Allergies Seasonal Allergies: No (MAYDA FERNANDO MD) Past Medical History Surgeries: Yes Gallbladder Respiratory: No Cardiac: No Neurological: Yes (SEIZURES SINCE AGE 14) Headaches /Migraines, Seizure Disorder Female Reproductive Disorders: Denies Genitourinary: No Gastrointestinal: No Musculoskeletal: No Endocrine: No HEENT: No Cancer: No Psychosocial: No Integumentary: No Blood Disorders: No (MAYDA FERNANDO MD) Family Medical History No Pertinent Family Hx (MAYDA FERNANDO MD) Physical Exam Vital Signs Vital Signs - First Documented 03/28/18 17:31 Temp 98.0 Pulse 80 Resp 16 B/P (MAP) 145/102 O2 Delivery Room Air (MARCO BOLTON MD) Vital Signs Capillary Refill : (MAYDA FERNANDO MD) Height/Weight/BMI Height: 5'6.00" Weight: 180lbs. oz. 81.572146wc; 28.12 BMI Method:Stated General Appearance: WD/WN HEENT: PERRL/EOMI, normal ENT inspection Neck: normal inspection Respiratory: lungs clear, normal breath sounds, no respiratory distress, no accessory muscle use Cardiovascular: regular rate, rhythm, no edema, no murmur Gastrointestinal: normal bowel sounds, soft, tenderness (right lower quadrant) Extremities: normal inspection, no pedal edema Neurologic/Psychiatric: control systems developer II-XII nml as tested, no motor/sensory deficits, alert, normal mood/affect, oriented x 3 Skin: normal color, warm/dry (MAYDA FERNANDO MD) Progress/Results/Core Measures Results/Orders Lab Results Laboratory Tests Test 03/28/18 17:55 Range/Units White Blood Count 5.7 4.3-11.0 10^3/uL Red Blood Count 4.36 4.35-5.85 10^6/uL Hemoglobin 12.7 11.5-16.0 G/DL Hematocrit 38 35-52 % Mean Corpuscular Volume 86 80-99 FL Mean Corpuscular Hemoglobin 29 25-34 PG Mean Corpuscular Hemoglobin Concent 34 32-36 G/DL Red Cell Distribution Width 12.0 10.0-14.5 % Platelet Count 313 130-400 10^3/uL Mean Platelet Volume 8.9 7.4-10.4 FL Neutrophils (%) (Auto) 46 42-75 % Lymphocytes (%) (Auto) 44 12-44 % Monocytes (%) (Auto) 8 0-12 % Eosinophils (%) (Auto) 1 0-10 % Basophils (%) (Auto) 1 0-10 % Neutrophils # (Auto) 2.6 1.8-7.8 X 10^3 Lymphocytes # (Auto) 2.5 1.0-4.0 X 10^3 Monocytes # (Auto) 0.5 0.0-1.0 X 10^3 Eosinophils # (Auto) 0.1 0.0-0.3 10^3/uL Basophils # (Auto) 0.0 0.0-0.1 10^3/uL Sodium Level 141 135-145 MMOL/L Potassium Level 3.8 3.6-5.0 MMOL/L Chloride Level 105 98-107 MMOL/L Carbon Dioxide Level 24 21-32 MMOL/L Anion Gap 12 5-14 MMOL/L Blood Urea Nitrogen 9 7-18 MG/DL Creatinine 0.77 0.60-1.30 MG/DL Estimat Glomerular Filtration Rate > 60 BUN/Creatinine Ratio 12 Glucose Level 88 70-105 MG/DL Calcium Level 9.6 8.5-10.1 MG/DL Corrected Calcium 9.4 8.5-10.1 MG/DL Total Bilirubin 0.5 0.1-1.0 MG/DL Aspartate Amino Transf (AST/SGOT) 26 5-34 U/L Alanine Aminotransferase (ALT/SGPT) 45 0-55 U/L Alkaline Phosphatase 105 40-136 U/L C-Reactive Protein High Sensitivity 0.43 0.00-0.50 MG/DL Total Protein 7.8 6.4-8.2 GM/DL Albumin 4.3 3.2-4.5 GM/DL Lipase 39 8-78 U/L Serum Test, Qualitative NEGATIVE NEGATIVE Smear Scan (MARCO BOLTON MD) My Orders Orders - MARCO BOLTON MD Famotidine Tablet (Pepcid Tablet) (03/28/18 19:11) Hydrocodone/Apap 5/325 Tablet (Lortab 5 (03/28/18 19:11) (MARCO BOLTON MD) Medications Given in ED Current Medications Medications Dose Ordered Sig/Bulmaro Route Start Time Stop Time Status Last Admin Dose Admin Al Hydrox/Mg Hydrox/Simethicone 30 ml ONCE ONCE PO 03/28/18 18:45 03/28/18 18:46 DC 03/28/18 18:43 30 ML Ketorolac Tromethamine 15 mg ONCE ONCE IVP 03/28/18 17:45 03/28/18 17:46 DC 03/28/18 17:52 15 MG Lidocaine HCl 15 ml ONCE ONCE PO 03/28/18 18:45 03/28/18 18:46 DC 03/28/18 18:43 15 ML Ondansetron HCl 8 mg ONCE ONCE IVP 03/28/18 17:45 03/28/18 17:46 DC 03/28/18 17:51 8 MG Sodium Chloride 1,000 ml @ 0 mls/hr Q0M ONCE IV 03/28/18 17:38 03/28/18 17:40 DC 03/28/18 17:58 1,000 MLS/HR (MARCO BOLTON MD) Vital Signs/I&O 03/28/18 17:31 Temp 98.0 Pulse 80 Resp 16 B/P (MAP) 145/102 O2 Delivery Room Air (MARCO BOLTON MD) Progress Progress Note : Time: 18:37 Progress Note Labs were unremarkable. Patient was reexamined and found to have a mildly diffusely tender abdomen. She no longer had focal tenderness in the right lower quadrant. We will try a GI cocktail to see if that improves her pain some more. If so, we will add an antacid therapy to her pain management. (MAYDA FERNANDO MD) Progress Note : Progress Note 0: Is a little better but is feeling a little achy-like yesterday. Hydrocodone 5/325 one tab by mouth given. She did state the GI cocktail helped. Famotidine 20 mg by mouth. Discharged home with return precautions. Patient verbalize understanding instructions and agreement with plan. (MARCO BOLTON MD) Departure Impression Primary Impression: Right lower quadrant pain Additional Impressions: Nausea and vomiting Qualified Codes: R11.2 - Nausea with vomiting, unspecified Mesenteric adenitis Disposition: HOME, SELF-CARE Condition: Improved Departure-Patient Inst. Referrals: [facility] (PCP/Family) Primary Care Physician Patient Instructions: Acute Abdomen (Belly Pain), Child (DC) Add. Discharge Instructions: You may continue using Zofran (ondansetron) for nausea and vomiting. Observe a clear liquid diet for another 24 hours. You may take ibuprofen up to 600 mg every 6 hours as needed for pain. Add Tylenol (acetaminophen) up to 1000 mg every 6 hours as needed or your hydrocodone as prescribed for additional pain relief. You may also use uczr-xep-euhhnis famotidine (pepsic) 20 mg once or twice daily for the next several days and then daily as needed thereafter. You may also add [id number] omeprazole 20 mg daily for the next 2 weeks. You may extend this to 6 weeks if needed. Follow-up with [facility] in the next several days for recheck and further evaluation. Return for worse pain, fever, vomiting or other concerns as needed. All discharge instructions reviewed with patient and/or family. Voiced understanding. Scripts Hydrocodone/Acetaminophen (Hydrocodone-Acetamin 5-325 mg) 1 Each Tablet 1 EACH PO Q4-6HR PRN for PAIN-MODERATE, #5 TAB Prov: MAYDA FERNANDO MD 03/28/18 MAYDA FERNANDO MD Mar 28, 2018 18:20 MACRO BOLTON MD Mar 28, 2018 19:15
[2018-03-28] MEDS ORDERED: HYDR-3812 PO (18:40)
[2018-03-28] MEDS ORDERED: LIDOCAINE 2% VISCOUS 15 ML UDC PO ONE (18:45)
[2018-03-28] MEDS ORDERED: ANTACID SUSP 30 ML UDC (MYLANTA) PO ONE (18:45)
[2018-03-28] MEDS ORDERED: FAMOTIDINE 20 MG (PEPCID) TABLET PO STA (19:11)
[2018-03-28] MEDS ORDERED: HYDROcodone/APAP 5 MG/325 MG (LORTAB) TAB PO STA (19:11)
== END 2018-03-28 19:25 | disposition home or self-care (01) ==
LOC: EDUNIT# 17:24 → ER 17:25
DX: I88.0 Nonspecific mesenteric lymphadenitis (principal); R10.31 Right lower quadrant pain; R11.2 Nausea with vomiting, unspecified; G40.909 Epilepsy, unspecified, not intractable, without status epilepticus; G43.909 Migraine, unspecified, not intractable, without status migrainosus; Z88.2 Allergy status to sulfonamides; Z90.89 Acquired absence of other organs
CPT/HCPCS: 36415; 80053; 83690; 84703; 85025; 86141; 96361; 96374; 96375

== ENCOUNTER 2018-05-21 22:23 | Emergency (ER) | payer BC ==
[~2018-05-21] VITALS: Ht 167.6 cm; Wt 81.6 kg
[~2018-05-21 22:23] MED LIST changes: +HYDR-3812 PO
[2018-05-21] MEDS ORDERED: LACTATED RINGERS 1,000 ML IV ONE (22:39)
[2018-05-21 22:48] LABS: BASOPHILS % (AUTO) 0 % (0-10); EOSINOPHILS # (AUTO) 0.1 10^3/uL (0.0-0.3); EOSINOPHILS % (AUTO) 1 % (0-10); HEMATOCRIT 37 % (35-52); HEMOGLOBIN 12.4 G/DL (11.5-16.0); LYMPHOCYTES # (AUTO) 3.3 X 10^3 (1.0-4.0); LYMPHOCYTES % (AUTO) 34 % (12-44); MEAN CORPUSCULAR HEMOGLOBIN 29 PG (25-34); MEAN CORPUSCULAR HGB CONC 34 G/DL (32-36); MEAN CORPUSCULAR VOLUME 86 FL (80-99); MEAN PLATELET VOLUME 8.4 FL (7.4-10.4); MONOCYTES % (AUTO) 11 % (0-12); NEUTROPHILS # (AUTO) 5.4 X 10^3 (1.8-7.8); NEUTROPHILS % (AUTO) 54 % (42-75); PLATELET COUNT 414 10^3/uL (130-400); RED BLOOD COUNT 4.27 10^6/uL (4.35-5.85); RED CELL DISTRIBUTION WIDTH 12.2 % (10.0-14.5); WHITE BLOOD COUNT 9.8 10^3/uL (4.3-11.0)
[2018-05-21 23:03] LABS: ALANINE AMINOTRANSFERASE 48 U/L (0-55); ALBUMIN 4.1 GM/DL (3.2-4.5); ALKALINE PHOSPHATASE 102 U/L (40-136); BILIRUBIN,TOTAL 0.2 MG/DL (0.1-1.0); BUN/CREATININE RATIO 12; CALCIUM 9.7 MG/DL (8.5-10.1); CARBON DIOXIDE 25 MMOL/L (21-32); CHLORIDE 105 MMOL/L (98-107); CREATINE KINASE 89 U/L (29-168); CREATININE SERUM 0.69 MG/DL (0.60-1.30); GFR ESTIMATED > 60; GLUCOSE 83 MG/DL (70-105); MAGNESIUM 2.2 MG/DL (1.8-2.4); POTASSIUM 3.8 MMOL/L (3.6-5.0); SODIUM 140 MMOL/L (135-145); TOTAL PROTEIN 8.1 GM/DL (6.4-8.2)
[2018-05-21 23:18] LABS: BILIRUBIN,URINE NEGATIVE (NEGATIVE); CLARITY,URINE SLIGHTLY CLOUDY; COLOR,URINE YELLOW; GLUCOSE, URINE (UA) NEGATIVE (NEGATIVE); KETONES,URINE 1+ (NEGATIVE); LEUKOCYTE ESTERASE ,URINE 1+ (NEGATIVE); NITRITE,URINE NEGATIVE (NEGATIVE); PH,URINE 7 (5-9); PROTEIN,URINE NEGATIVE (NEGATIVE); UROBILINOGEN,URINE NORMAL (NORMAL)
[2018-05-21 23:23] LABS: ACETAMINOPHEN < 10 UG/ML (10-30); CREATINE KINASE MB 0.4 NG/ML (<6.6); MYOGLOBIN SERUM 15.7 NG/ML (10.0-92.0); TSH (THYROID ANALYZER) 1.52 UIU/ML (0.35-4.94)
[2018-05-21 23:24] LABS: BACTERIA,URINE MODERATE /HPF; RBC,URINE RARE /HPF; WBC,URINE RARE /HPF
[2018-05-21 23:30] LABS: AMPHETAMINE SCREEN, URINE NEGATIVE (NEGATIVE); BARBITURATE SCREEN URINE NEGATIVE (NEGATIVE); BENZODIAZEPINES SCREEN URINE NEGATIVE (NEGATIVE); CANNABINOID SCREEN, URINE NEGATIVE (NEGATIVE); COCAINE SCREEN URINE NEGATIVE (NEGATIVE); METHADONE STAT NEGATIVE (NEGATIVE); METHAMPHETAMINE SCREEN URINE S NEGATIVE (NEGATIVE); OPIATE SCREEN URINE NEGATIVE (NEGATIVE); OXYCODONE STAT NEGATIVE (NEGATIVE); PROPOXYPHENE STAT NEGATIVE (NEGATIVE); TRICYCLIC ANTIDEPRESSANTS SCRE NEGATIVE (NEGATIVE)
[2018-05-21] MEDS ORDERED: CEFD300C3 PO (23:48)
--- NOTE | 2018-05-21 23:48 | ED Neurological Problem ---
General Chief Complaint: Neurological Problems Stated Complaint: SEIZURE Nursing Triage Note: PT TO ROOM #6 VIA [facility] CART FROM [facility] WITH C/O SEIZURE ACTIVITY. EMS REPORT FRIENDS WITNESSED X2 SEIZURES PRIOR TO DISPATCH. UPON ARRIVAL TO ED PT NOTED TO BE A&OX4 AND ANSWERING QUESTIONS APPROPRIATELY. PT REPORTS SHE IS UNAWARE IF SHE FELL. DENIES INJURY, PAIN, OR DISCOMFORT. PT REPORTS SHE ALSO HAD SEIZURE ACTIVITY 05/20/17 LASTING APPROX X2 MINUTES. PT REPORTS SHE HAS BEEN TREATED FOR URI SINCE 05/14/18 AND HAS X2 DOSES LEFT OF ANTIBIOTIC. INITIAL ORAL TEMP 98.3. WARM TO TOUCH. Source: patient, EMS, other (ROOM MATES TRY TO DO ALL TALKING FOR PT, INCLUDING HER PMH. ) History of Present Illness Date Seen by Provider: May 21, 2018 Time Seen by Provider: 22:25 Initial Comments PT ARRIVES VIA EMS FROM [facility], WITH 2 FEMALE ROOM MATES ARRIVING VIA POV. PT REPORTEDLY HAD 2 SEIZURES TONIGHT, WITNESSED BY ROOM MATES FIRST ONE REPORTEDLY LASTED 20 MINUTES AND THE SECOND ONE REPORTEDLY WAS A "FOCAL SEIZURE" THAT LASTED 2 MINUTES PT REPORTEDLY HAD A WITNESSED SEIZURE YESTERDAY ALSO, THAT LASTED 2 MINUTES. NO REPORTED INJURIES OR PAIN ANYWHERE LAST SEIZURE BEFORE THAT WAS OVER LARS BREAK PT HAS REPORTED HISTORY OF SEIZURES SINCE AGE 14, BUT DID NOT HAVE ANY FOR OVER A YEAR, THEN STARTED HAVING FREQUENT SEIZURES SINCE SHE FIRST STARTED COLLEGE HERE. PT STATES SHE SEES DR. TAYLOR, NEUROLOGIST IN [place], AND HE REFERRED HER TO A EPILEPSY SPECIALIST IN [facility], WHOM SHE SAW ONE TIME IN MARCH. PT STATES THAT HE INCREASED HER PM LAMICTAL DOSE FROM 200 MG TO 300 GM. PT ALSO TAKES 200 MG IN AM. PT DENIES ANY MISSED DOSES, BUT HAS NOT TAKEN HER PM DOSE TONIGHT. PT STATES SHE HAS NEVER HAD AN EEG, BUT STATES THE IN [facility] WANTS HER TO HAVE A "7 DAY VIDEO EEG" BUT THIS HAS NOT BEEN SET UP. HAS A FEW SEIZURES A MONTH PT REPORTS THAT DURING HER SEIZURE, SHE WAS ABLE TO STOP SEIZING, GET UP AND WALK TO THE DOOR AND ANSWER IT, THEN SIT BACK DOWN AND CONTINUE/START HAVING ANOTHER SEIZURE NO INCONTINENCE NO POST ICTAL SYMPTOMS OF ANY KIND PT ABLE TO RECALL CONVERSATIONS DURING THE SEIZURES PT STATES SHE HAS HAD AN UPPER RESPIRATORY INFECTION AND EAR INFECTION FOR THE LAST COUPLE OF WEEKS. WAS SEEN ON 05/14/[address] CARVER AT [facility] AND WAS PRESCRIBED AN UNKNOWN ANTIBIOTIC. STATES SHE HAS 2 PILLS LEFT. PT STATES THOSE SYMPTOMS ARE BETTER, BUT STILL IS HAVING A LOW GRADE FEVER EVERY EVENING AROUND 5 PM. PT HAS NOT TAKEN ANYTHING FOR THOSE SYMPTOMS OTHER THAN THE ANTIBIOTIC. PT HAS BEEN SEEN IN THIS ER MULTIPLE TIMES FOR THIS ISSUE THERE HAS NEVER BEEN ANY WITNESSED SEIZURE AT ANY TIME DURING ANY OF HER MULTIPLE ER VISITS HERE. EMS IS ALSO EXTREMELY FAMILIAR WITH THIS PT, EMS IS CALLED NEARLY EVERY TIME SHE HAS A SEIZURE. . EMS REPORT THAT THEY HAVE NEVER SEEN THE PT HAVING A SEIZURE. ROOM MATES ARE ALWAYS THE "WITNESSES" TO THE EVENTS. [facility] PCP: MT. VREA JACOBS Allergies and Home Medications Allergies Coded Allergies: Sulfa (Sulfonamide Antibiotics) (Unverified Adverse Reaction, Unknown, ) Home Medications Cefdinir 300 Mg Capsule, 300 MG PO BID Prescribed by: PATRICK GATES on 03/27/18 1831 Cefdinir 300 Mg Capsule, 300 MG PO BID Prescribed by: PATRICK GATES on 05/21/18 2348 Hydrocodone/Acetaminophen 1 Each Tablet, 1 EACH PO Q4-6HR PRN for PAIN-MODERATE Prescribed by: MAYDA WALTON on 03/28/18 1840 Lamotrigine 100 Mg Tablet, 100 MG PO BID, (Reported) Topiramate 100 Mg Tablet, 100 MG PO BID, (Reported) Trazodone HCl 50 Mg Tablet, 50 MG PO HS, (Reported) Patient Home Medication List Home Medication List Reviewed: Yes Review of Systems Review of Systems Constitutional: see HPI, fever Eyes: No Symptoms Reported Ears, Nose, Mouth, Throat: see HPI Respiratory: cough (OCCASIONAL MILD COUGH--FROM NASAL DRAINAGE) Cardiovascular: no symptoms reported Gastrointestinal: no symptoms reported; No nausea, No vomiting Genitourinary: no symptoms reported : No LMP: Apr 30, 2018 (NORMAL NO CONTROL) Musculoskeletal: no symptoms reported Skin: no symptoms reported Psychiatric/Neurological: See HPI; Denies Cognitive Dysfunction, Denies Headache, Denies Numbness, Denies Tingling, Denies Weakness Endocrine: No Symptoms Reported Hematologic/Lymphatic: No Symptoms Reported Past Pfizhja-Wmlkrs-Znivfm Hx Patient Social History Alcohol Use: Denies Use Recreational Drug Use: No Smoking Status: Never a Smoker 2nd Hand Smoke Exposure: No Recent Foreign Travel: No Contact w/Someone Who Travel: No Recent Infectious Disease Expo: No Recent Hopitalizations: No Ebola Symptoms: Denies Symptoms Listed Physical Abuse: No Sexual Abuse: No Immunizations Up To Date PED Vaccines UTD: Yes Seasonal Allergies Seasonal Allergies: No Past Medical History Surgeries: Yes Gallbladder Respiratory: No Cardiac: No Neurological: Yes (SEIZURES SINCE AGE 14) Headaches /Migraines, Seizure Disorder Female Reproductive Disorders: Denies Genitourinary: No Gastrointestinal: No Musculoskeletal: No Endocrine: No HEENT: No Cancer: No Psychosocial: No Integumentary: No Blood Disorders: No Family Medical History No Pertinent Family Hx Physical Exam Vital Signs Vital Signs - First Documented 05/21/18 05/22/18 22:25 00:50 Temp 98.3 Pulse 107 Resp 16 B/P (MAP) 124/61 Pulse Ox 98 O2 Delivery Room Air Capillary Refill : Height, Weight, BMI Height: 5'6.00" Weight: 180lbs. oz. 81.270587ka; 28.12 BMI Method:Stated General Appearance: WD/WN, no apparent distress, other (SMILING, TALKATIVE, DOES NOT APPEAR TO BE POST ICTAL OR IN ANY DISCOMFORT OR DISTRESS. MENTATION AND SPEECH ARE NORMAL. NO INCONTINENCE. ) HEENT: PERRL/EOMI, other (MILD NASAL MUCOSAL EDEMA, CLEAR POST NASAL DRAINAGE. ) Neck: normal inspection Respiratory: normal breath sounds, no respiratory distress, no accessory muscle use Cardiovascular: regular rate, rhythm, no murmur Gastrointestinal: soft Extremities: normal inspection Neurologic/Psychiatric: special education resource teacher II-XII nml as tested, no motor/sensory deficits, alert, normal mood/affect, oriented x 3 Crainal Nerves: normal hearing, normal speech, PERRL Coordination/Gait: normal gait Motor/Sensory: no motor deficit, no sensory deficit, no pronator drift Skin: normal color, warm/dry, other (NO EXTERNAL EVIDENECE OF TRAUMA) Progress/Results/Core Measures Results/Orders Lab Results Laboratory Tests Test 05/21/18 22:35 05/21/18 22:57 05/21/18 23:09 Range/Units White Blood Count 9.8 4.3-11.0 10^3/uL Red Blood Count 4.27 L 4.35-5.85 10^6/uL Hemoglobin 12.4 11.5-16.0 G/DL Hematocrit 37 35-52 % Mean Corpuscular Volume 86 80-99 FL Mean Corpuscular Hemoglobin 29 25-34 PG Mean Corpuscular Hemoglobin Concent 34 32-36 G/DL Red Cell Distribution Width 12.2 10.0-14.5 % Platelet Count 414 H 130-400 10^3/uL Mean Platelet Volume 8.4 7.4-10.4 FL Neutrophils (%) (Auto) 54 42-75 % Lymphocytes (%) (Auto) 34 12-44 % Monocytes (%) (Auto) 11 0-12 % Eosinophils (%) (Auto) 1 0-10 % Basophils (%) (Auto) 0 0-10 % Neutrophils # (Auto) 5.4 1.8-7.8 X 10^3 Lymphocytes # (Auto) 3.3 1.0-4.0 X 10^3 Monocytes # (Auto) 1.0 0.0-1.0 X 10^3 Eosinophils # (Auto) 0.1 0.0-0.3 10^3/uL Basophils # (Auto) 0.0 0.0-0.1 10^3/uL Sodium Level 140 135-145 MMOL/L Potassium Level 3.8 3.6-5.0 MMOL/L Chloride Level 105 98-107 MMOL/L Carbon Dioxide Level 25 21-32 MMOL/L Anion Gap 10 5-14 MMOL/L Blood Urea Nitrogen 8 7-18 MG/DL Creatinine 0.69 0.60-1.30 MG/DL Estimat Glomerular Filtration Rate > 60 BUN/Creatinine Ratio 12 Glucose Level 83 70-105 MG/DL Calcium Level 9.7 8.5-10.1 MG/DL Corrected Calcium 9.6 8.5-10.1 MG/DL Magnesium Level 2.2 1.8-2.4 MG/DL Total Bilirubin 0.2 0.1-1.0 MG/DL Aspartate Amino Transf (AST/SGOT) 25 5-34 U/L Alanine Aminotransferase (ALT/SGPT) 48 0-55 U/L Alkaline Phosphatase 102 40-136 U/L Total Creatine Kinase 89 29-168 U/L Creatine Kinase MB 0.4 <6.6 NG/ML Myoglobin 15.7 10.0-92.0 NG/ML Total Protein 8.1 6.4-8.2 GM/DL Albumin 4.1 3.2-4.5 GM/DL TSH Rice Testing 1.52 0.35-4.94 UIU/ML Serum Test, Qualitative NEGATIVE NEGATIVE Acetaminophen Level < 10 L 10-30 UG/ML Serum Alcohol < 10 <10 MG/DL Monoscreen NEGATIVE NEGATIVE Group A Streptococcus Screen NEGATIVE NEGATIVE Urine Color YELLOW Urine Clarity SLIGHTLY CLOUDY Urine pH 7 5-9 Urine Specific [place] 1.015 L 1.016-1.022 Urine Protein NEGATIVE NEGATIVE Urine Glucose (UA) NEGATIVE NEGATIVE Urine Ketones 1+ H NEGATIVE Urine Nitrite NEGATIVE NEGATIVE Urine Bilirubin NEGATIVE NEGATIVE Urine Urobilinogen NORMAL NORMAL MG/DL Urine Leukocyte Esterase 1+ H NEGATIVE Urine RBC (Auto) 1+ H NEGATIVE Urine RBC RARE /HPF Urine WBC RARE /HPF Urine Squamous Epithelial Cells 10-25 H /HPF Urine Crystals NONE /LPF Urine Bacteria MODERATE H /HPF Urine Casts NONE /LPF Urine Mucus NEGATIVE /LPF Urine Culture Indicated YES Urine Opiates Screen NEGATIVE NEGATIVE Urine Oxycodone Screen NEGATIVE NEGATIVE Urine Methadone Screen NEGATIVE NEGATIVE Urine Propoxyphene Screen NEGATIVE NEGATIVE Urine Barbiturates Screen NEGATIVE NEGATIVE Ur Tricyclic Antidepressants Screen NEGATIVE NEGATIVE Urine Phencyclidine Screen NEGATIVE NEGATIVE Urine Amphetamines Screen NEGATIVE NEGATIVE Urine Methamphetamines Screen NEGATIVE NEGATIVE Urine Benzodiazepines Screen NEGATIVE NEGATIVE Urine Cocaine Screen NEGATIVE NEGATIVE Urine Cannabinoids Screen NEGATIVE NEGATIVE Micro Results Microbiology 05/21/18 Influenza Types A,B Antigen (KATELYNN) - Final, Complete My Orders Orders - PATRICK GATES DO Saline Lock/Iv-Start (05/21/18 22:39) Monitor-Rhythm Ecg Trace Only (05/21/18 22:39) Acetaminophen (05/21/18 22:39) Alcohol (05/21/18 22:39) Cbc With Automated Diff (05/21/18 22:39) Comprehensive Metabolic Panel (05/21/18 22:39) Creatine Kinase (05/21/18 22:39) Creatine Kinase Mb (05/21/18 22:39) Drug Screen Stat (Urine) (05/21/18 22:39) Magnesium (05/21/18 22:39) Monotest (05/21/18 22:39) Rapid Strep A Screen (05/21/18 22:39) Thyroid Analyzer (05/21/18 22:39) Ua Culture If Indicated (05/21/18 22:39) Blood Culture (05/21/18 22:39) Influenza A And B Antigens (05/21/18 22:39) Myoglobin Serum (05/21/18 22:39) Saline Lock/Iv-Start (05/21/18 22:39) Lactated Ringers (Lr 1000 Ml Iv Solution (05/21/18 22:39) Chest Pa/Lat (2 View) (05/21/18 22:39) Hcg,Qualitative Serum (05/21/18 22:39) Urine Culture (05/21/18 23:09) Cefdinir Capsule (Omnicef Capsule) (05/22/18 00:00) Medications Given in ED Current Medications Medications Dose Ordered Sig/Bulmaro Route Start Time Stop Time Status Last Admin Dose Admin Cefdinir 300 mg ONCE ONCE PO 05/22/18 00:00 05/22/18 00:01 DC 05/22/18 00:01 300 MG Lactated Ringer's 1,000 ml @ 0 mls/hr Q0M ONCE IV 05/21/18 22:39 05/21/18 22:43 DC 05/21/18 23:10 0 MLS/HR Vital Signs/I&O 05/21/18 05/22/18 22:25 00:50 Temp 98.3 98.3 Pulse 107 100 Resp 16 16 B/P (MAP) 124/61 Pulse Ox 98 O2 Delivery Room Air Room Air Progress Progress Note : Progress Note ROOM MATES LAYING ON ER CART WITH PT AT TIMES DURING ER STAY OTHERWISE UNEVENTFUL ER STAY NO SEIZURE ACTIVITY OF ANY KIND DURING ER STAY. Diagnostic Imaging Comments CXR--NO ACUTE PROCESS, PER RADIOLOGIST REPORT Reviewed: Reviewed by Me Departure Impression Primary Impression: Seizure disorder Additional Impressions: Upper respiratory infection UTI (urinary tract infection) Disposition: 01 HOME, SELF-CARE Condition: Stable Departure-Patient Inst. Referrals: [facility] (PCP/Family) Primary Care Physician Patient Instructions: Bacterial Upper Respiratory Infection, Adult (DC), Seizures, Adult (DC), Urinary Tract Infection, Adult (DC) Add. Discharge Instructions: LOTS OF FLUIDS TAKE YOUR MEDICATIONS PRESCRIBED TYLENOL AND MOTRIN NEEDED FOR PAIN FOLLOW UP WITH YOUR NEUROLOGIST THIS WEEK FOR FURTHER CARE OF SEIZURES FOLLOW UP WITH [facility] IN 3-4 DAYS IF NO IMPROVEMENT WITH UPPER RESPIRATORY SYMPTOMS All discharge instructions reviewed with patient and/or family. Voiced understanding. Scripts Cefdinir (Cefdinir) 300 Mg Capsule 300 MG PO BID for FOR INFECTION, #20 CAP Prov: PATRICK GATES DO 05/21/18 PATRICK GATES DO May 21, 2018 23:48
[2018-05-22] MEDS ORDERED: CEFDINIR 300 MG (OMNICEF) CAP PO ONE
--- NOTE | 2018-05-22 08:25 | Diagnostic Imaging Report ---
INDICATION: Seizure. Time of exam: 11:31 PM Comparison is made with prior chest from 02/11/2018. The heart size is normal. The pulmonary vascularity is unremarkable. The lungs are clear. No infiltrate, effusion or pneumothorax is detected. Impression: No acute cardiopulmonary process is detected. Dictated by: Dictated on workstation # [id number]
== END 2018-05-22 00:49 | disposition home or self-care (01) ==
LOC: EDUNIT# 22:23 → ER 22:24
DX: G40.909 Epilepsy, unspecified, not intractable, without status epilepticus (principal); J06.9 Acute upper respiratory infection, unspecified; N39.0 Urinary tract infection, site not specified; G43.909 Migraine, unspecified, not intractable, without status migrainosus; Z88.0 Allergy status to penicillin; Z98.890 Other specified postprocedural states
CPT/HCPCS: 36415; 71046; 80053; 80306; 80320; 80329; 81000; 82550; 82553; 83735; 83874; 84443; 84703; 85025; 86308; 87040; 87088; 87430; 87804; 93041

== ENCOUNTER 2019-01-29 16:50 | Emergency (ER) | payer BC ==
[~2019-01-29] VITALS: Ht 167 cm; Wt 111.3 kg
[~2019-01-29 16:50] MED LIST changes: -LAMO25TA; +LAMO25TA8; -TRAZ-189 PO; +TRAZ-222 PO
[2019-01-29] MEDS ORDERED: LEVO1TAB79 (17:04)
--- NOTE | 2019-01-29 17:27 | NUR ---
PT STATES HAS NON-EPILECTIC SEIZURES. STATES HAD ONE SUNDAY AND SUNDAY. HAS C-COLLAR IN PLACE. DENIES BEING ON MEDICATIONS FOR SEIZURES. STATES HIT HEAD WHEN FELL TODAY
--- NOTE | 2019-01-29 17:48 | ED Fall/Injury ---
General Chief Complaint: Trauma-Non Activation Stated Complaint: HAD SEIZURE Nursing Triage Note: PT STATES SHE HAD A SEIZURE AT [facility] 1345 AND FELL DOWN 13 STAIRS. POSTIVE LOC. COMPLAINS OF HEAD, NECK, AND BILAT LOWER ARM AND KNEE PAIN. PT STATES SHE ALSO HAD A SEIZURE YESTERDAY. Source: patient Exam Limitations: no limitations History of Present Illness Date Seen by Provider: Jan 29, 2019 Time Seen by Provider: 17:46 Initial Comments To ER with reports of a seizure today at about 145 falling down 13 stairs. She had positive loss of consciousness, complains of some headache and neck pain but states this is not unusual for her, she has a headache most of the time and she always has neck pain after a seizure. She has a known seizure disorder and has them fairly frequently. She has some bruising to the ulnar side of the forearms and anterior knees bilaterally. She is ambulatory. Occurred: just prior to arrival Severity: moderate Injuries/Pain Location: head, neck, upper extremity Associated Symptoms (Fall): Denies Symptoms Allergies and Home Medications Allergies Coded Allergies: Sulfa (Sulfonamide Antibiotics) (Unverified Adverse Reaction, Unknown, 05/24/17) Patient Home Medication List Home Medication List Reviewed: Yes Review of Systems Review of Systems Constitutional: see HPI Eyes: No Symptoms Reported Ears, Nose, Mouth, Throat: no symptoms reported Respiratory: no symptoms reported Cardiovascular: no symptoms reported Genitourinary: no symptoms reported Musculoskeletal: see HPI Skin: no symptoms reported Psychiatric/Neurological: No Symptoms Reported Past Lrxdoco-Nfrgln-Puddfc Hx Patient Social History Alcohol Use: Occasionally Uses Recreational Drug Use: No Smoking Status: Never a Smoker 2nd Hand Smoke Exposure: No Recent Foreign Travel: No Contact w/Someone Who Travel: No Recent Infectious Disease Expo: No Recent Hopitalizations: No Immunizations Up To Date PED Vaccines UTD: Yes Seasonal Allergies Seasonal Allergies: No Past Medical History Surgeries: Yes Gallbladder Respiratory: No Cardiac: No Neurological: Yes (SEIZURES SINCE AGE 14) Headaches /Migraines, Seizure Disorder : No Last Menstrual Period: Jan 08, 2019 Female Reproductive Disorders: Denies Genitourinary: No Gastrointestinal: No Musculoskeletal: No Endocrine: No HEENT: No Cancer: No Psychosocial: No Integumentary: No Blood Disorders: No Family Medical History No Pertinent Family Hx Physical Exam Vital Signs Vital Signs - First Documented 01/29/19 16:55 Temp 36.7 Pulse 89 Resp 16 B/P (MAP) 142/85 (104) Pulse Ox 98 O2 Delivery Room Air Capillary Refill : Less Than 3 Seconds Height, Weight, BMI Height: 5'6.00" Weight: 180lbs. oz. 81.975110qf; 39.00 BMI Method:Stated General Appearance: WD/WN, no apparent distress, other (no obvious scalp laceration or wound, GCS 15 alert and oriented pleasant talkative in a rigid cervical collar.) HEENT: PERRL/EOMI, normal ENT inspection, TMs normal, pharynx normal Neck: non-tender, full range of motion Respiratory: chest non-tender, lungs clear, normal breath sounds, no re spiratory distress, no accessory muscle use Gastrointestinal: normal bowel sounds, non tender, soft Extremities: normal range of motion, non-tender, other (small dime-sized ecchymosis overlying the patella bilaterally, she does have the ability to fully lift the foot up off the bed and fully extend the legs suggesting an intact patella. She has some ecchymosis over the dorsal aspect ulnar side of the forearms.) Neurologic/Psychiatric: alert, normal mood/affect, oriented x 3 Skin: normal color, warm/dry Progress/Results/Core Measures Results/Orders My Orders Orders - ROBERTO BOWEN APRN Ct Head/Cervical Spine Wo (01/29/19 17:43) Forearm, 2 Views, Bilateral (01/29/19 17:43) Vital Signs/I&O 01/29/19 16:55 Temp 36.7 Pulse 89 Resp 16 B/P (MAP) 142/85 (104) Pulse Ox 98 O2 Delivery Room Air Blood Pressure Mean: 104 Departure Communication (Admissions) 1818-rigid cervical collar removed at this time. Impression Primary Impression: Seizure Additional Impression: Contusion Qualified Codes: S80.00XA - Contusion of unspecified knee, initial encounter Disposition: HOME, SELF-CARE Condition: Stable Departure-Patient Inst. Decision time for Depature: 17:48 Referrals: [facility] (PCP/Family) Primary Care Physician Patient Instructions: Contusion (DC) Add. Discharge Instructions: 1. Return to ER for any concerns 2. Follow-up with your doctor next week 3. No driving. All discharge instructions reviewed with patient and/or family. Voiced understanding. ROBERTO BOWEN APRN Jan 29, 2019 17:48
--- NOTE | 2019-01-29 18:15 | Diagnostic Imaging Report ---
PROCEDURE: CT head and CT cervical spine without contrast. TECHNIQUE: Multiple contiguous axial images were obtained through the brain and cervical spine without the use of intravenous contrast. Sagittal and coronal reformations through the cervical spine were then performed. Auto Exposure Controls were utilized during the CT exam to meet ALARA standards for radiation dose reduction. INDICATION: Seizure with fall downstairs. Loss of consciousness. Head, neck, lower arm and knee pain. COMPARISON: CT head from 12/24/2017. FINDINGS: CT HEAD: The ventricles and cortical sulci are age-appropriate. There is no midline shift or mass effect. There is no acute intracranial hemorrhage. There is no CT evidence of acute territorial ischemia. The calvarium appears intact. The visualized paranasal sinuses are clear. CT cervical spine: There is straightening of the cervical lordosis without spondylolisthesis. Vertebral body heights and disc heights are preserved. No acute fracture is seen. No bony fragments or hyperdense fluid collections are seen in the spinal canal. The soft tissues about the cervical spine appear normal. IMPRESSION: 1. No acute intracranial hemorrhage or calvarial fracture. 2. No acute osseous abnormality seen in the cervical spine. Dictated by: Dictated on workstation # [id number]
--- NOTE | 2019-01-29 18:20 | NUR ---
C-COLLAR REMOVED BY Terri MANRIQUEZ
[2019-01-29 18:28] VITALS: BP 142/85
--- NOTE | 2019-01-29 18:43 | Diagnostic Imaging Report ---
EXAM: FOREARM, 2 VIEWS, BILATERAL INDICATION: Seizure. Fall. Bilateral forearm pain. COMPARISON: None. FINDINGS: No fracture or malalignment. The soft tissue shadows are unremarkable. IMPRESSION: Negative bilateral forearm radiographs. Dictated by: Dictated on workstation # [id number]
== END 2019-01-29 18:27 | disposition home or self-care (01) ==
LOC: EDUNIT# 16:50 → ER 16:51
DX: S80.01XA Contusion of right knee, initial encounter (principal); S80.02XA Contusion of left knee, initial encounter; G40.909 Epilepsy, unspecified, not intractable, without status epilepticus; G43.909 Migraine, unspecified, not intractable, without status migrainosus; Z88.2 Allergy status to sulfonamides; W10.9XXA Fall (on) (from) unspecified stairs and steps, initial encounter
CPT/HCPCS: 70450; 72125

== ENCOUNTER → 2019-09-23 | Outpatient (CLI) | payer BC ==
[~2019-09-23] MED LIST changes: +ACHD5005 PO; +GADOBUTROL 10 MMOL/10 ML (GADAVIST) VIAL IV ONE; -HYDR-3812 PO; -LAMO100T PO; +LAMO100T5 PO; +LEVO1TAB79; -TRAZ-222 PO; +TRZ50T PO
--- NOTE | 2019-09-23 17:23 | Diagnostic Imaging Report ---
PROCEDURE: MR imaging of the brain with and without contrast. TECHNIQUE: Multiplanar, multisequence MR imaging of the brain was performed with and without contrast. INDICATION: Chiari malformation. COMPARISON: No prior MRI is available for comparison. FINDINGS: Ventricular size and sulcal pattern appear normal. There is no midline shift. The normal expected flow voids within the carotid siphons are seen. There is no diffusion restriction. No acute intra-axial or extra-axial hemorrhage is detected. Corpus callosum is unremarkable. No abnormal enhancement following contrast administration is seen. The sella and parasellar structures are unremarkable. There does appear to be inferior positioning of the cerebellar tonsils through the foramen magnum by approximately 10 mm consistent with patient's diagnosis of Chiari malformation. No other abnormalities are seen. IMPRESSION: Chiari I malformation. No other significant abnormality is detected. Dictated by: Dictated on workstation # [id number]
--- NOTE | 2019-09-23 18:00 | Diagnostic Imaging Report ---
PROCEDURE: MR imaging cervical spine without contrast. TECHNIQUE: Multiplanar, multisequence MR imaging of the cervical spine was performed without contrast. INDICATION: Chiari malformation. COMPARISON: No prior MRI cervical spine studies are available for comparison. FINDINGS: Alignment of the cervical spine is normal. Vertebral body heights and marrow signal intensity are normal. No marrow lesion is seen. There is normal height and hydration to the cervical intervertebral discs. There is inferior positioning of the cerebellar tonsils through the foramen magnum, consistent with Chiari I malformation. No syrinx within the cervical spinal cord is seen. Cervical spinal cord shows normal homogeneous signal intensity and normal morphology. The spinal canal is patent. Paraspinous tissues are unremarkable. IMPRESSION: Chiari I malformation. The study is otherwise unremarkable. Dictated by: Dictated on workstation # [id number]
== END ==
LOC: RAD 12:50
PROVIDERS: ATTEND Internal Medicine
DX: G93.5 Compression of brain (principal); I82.0 Budd-Chiari syndrome
CPT/HCPCS: 70553; 72141

== ENCOUNTER 2019-10-09 21:13 | Emergency (ER) | payer BC ==
[~2019-10-09] VITALS: Ht 167 cm; Wt 114.4 kg
[~2019-10-09 21:13] MED LIST changes: -GADOBUTROL 10 MMOL/10 ML (GADAVIST) VIAL IV ONE
[2019-10-09] MEDS ORDERED: diphenhydrAMINE 50 MG/ML INJ (BENADRYL) IV STA (21:38)
[2019-10-09] MEDS ORDERED: methylPREDNISolone 125 MG (Solu-MEDROL) VIAL IV STA (21:38)
[2019-10-09] MEDS ORDERED: LACTATED RINGERS 1,000 ML IV ONE (21:38)
[2019-10-09] MEDS ORDERED: FAMOTIDINE 20MG/2ML IV (PEPCID) IVP ONE (21:45)
[2019-10-09] MEDS ORDERED: ONDANSETRON 4 MG/2 ML (SDV) Z0FRAN IVP ONE (21:45)
[2019-10-09 22:22] LABS: BASOPHILS % (AUTO) 0 % (0-10); EOSINOPHILS % (AUTO) 1 % (0-10); HEMATOCRIT 37 % (35-52); HEMOGLOBIN 12.6 G/DL (11.5-16.0); LYMPHOCYTES # (AUTO) 1.9 X 10^3 (1.0-4.0); LYMPHOCYTES % (AUTO) 22 % (12-44); MEAN CORPUSCULAR HEMOGLOBIN 28 PG (25-34); MEAN CORPUSCULAR HGB CONC 34 G/DL (32-36); MEAN CORPUSCULAR VOLUME 84 FL (80-99); MONOCYTES # (AUTO) 0.6 X 10^3 (0.0-1.0); MONOCYTES % (AUTO) 7 % (0-12); NEUTROPHILS # (AUTO) 6.3 X 10^3 (1.8-7.8); NEUTROPHILS % (AUTO) 71 % (42-75); PLATELET COUNT 379 10^3/uL (130-400); RED CELL DISTRIBUTION WIDTH 13.1 % (10.0-14.5); WHITE BLOOD COUNT 8.9 10^3/uL (4.3-11.0)
[2019-10-09 22:40] LABS: ALANINE AMINOTRANSFERASE 30 U/L (0-55); ALBUMIN 4.2 GM/DL (3.2-4.5); ALKALINE PHOSPHATASE 117 U/L (40-136); AMYLASE 55 U/L (25-125); BILIRUBIN,TOTAL 0.5 MG/DL (0.1-1.0); BUN/CREATININE RATIO 13; CALCIUM 9.5 MG/DL (8.5-10.1); CARBON DIOXIDE 22 MMOL/L (21-32); CHLORIDE 104 MMOL/L (98-107); CREATININE SERUM 0.77 MG/DL (0.60-1.30); GFR ESTIMATED > 60; GLUCOSE 109 MG/DL (70-105); LIPASE 19 U/L (8-78); POTASSIUM 3.8 MMOL/L (3.6-5.0); SODIUM 138 MMOL/L (135-145); TOTAL PROTEIN 8.4 GM/DL (6.4-8.2)
[2019-10-09 22:40] LABS: CLARITY,URINE CLEAR; COLOR,URINE YELLOW; GLUCOSE, URINE (UA) NEGATIVE (NEGATIVE); KETONES,URINE NEGATIVE (NEGATIVE); LEUKOCYTE ESTERASE ,URINE NEGATIVE (NEGATIVE); NITRITE,URINE NEGATIVE (NEGATIVE); PH,URINE 5.5 (5-9); PROTEIN,URINE 1+ (NEGATIVE)
[2019-10-09 22:51] LABS: AMORPHOUS SEDIMENT,UR FEW AMOR URATES /LPF; BACTERIA,URINE TRACE /HPF; RBC,URINE 0-2 /HPF; WBC,URINE 0-2 /HPF
[2019-10-09 22:52] LABS: BILIRUBIN,URINE 1+ (NEGATIVE)
[2019-10-09] MEDS ORDERED: RX-ONDANSETRON 4 MG ODT (ZOFRAN) PPK #4 PO STA (22:56)
[2019-10-09] MEDS ORDERED: ONDA4TAB11 PO (23:00)
--- NOTE | 2019-10-09 23:00 | ED General ---
General Chief Complaint: Allergic Reaction Stated Complaint: ALLERGIC REACTION TO ANTIBIOTIC (AMOXICILLIN) Nursing Triage Note: TO ED VIA POV AND AMBULATORY TO ROOM 7 WITH C/O VOMITING AFTER TAKING AMOXICILLIN THAT WAS PRESCRIBED AFTER SEEN AT URGENT CARE TODAY FOR TOOTH ABSCESS. STATES RASH TO ARMS ALSO SHE THINKS. Nursing Sepsis Screen: No Definite Risk Source of Information: Patient History of Present Illness Date Seen by Provider: Oct 09, 2019 Time Seen by Provider: 21:28 Initial Comments PT ARRIVES VIA POV FROM HOME C/O NAUSEA AND VOMITING FOR THE LAST COUPLE OF DAYS--VOMITED X 4 TODAY--ATE [employer] AROUND 1830 AND VOMITED IT UP-STATES SHE CAN'T KEEP ANY FOOD DOWN HAS BEEN HAVING DENTAL PAIN AND STATES THE NAUSEA AND VOMITING IS DUE TO THE PAIN STATES SHE WENT TO [facility] TODAY FOR THE DENTAL PAIN AND GOT RX FOR AMOXIL AND TRAMADOL. STATES SHE HAS AHD BOTH MEDICATIONS BEFORE AND NOT HAD ANY PROBLEMS. HAS APPOINTMENT WITH DENTIST THE END OF THIS MONTH. STATES AT 1999 TONIGHT, SHE BEGAN TO HAVE A VERY ITCHY RASH ON HER CHEST AND BOTH ARMS--STATES THIS IS THE REASON SHE CAME TO ER, BUT STATES THE RASH AND ITCHING IS NOW SUDDENLY GONE. 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 PCP: [facility] Allergies and Home Medications Allergies Coded Allergies: Sulfa (Sulfonamide Antibiotics) (Unverified Adverse Reaction, Unknown, 05/24/17) Home Medications Ondansetron 4 Mg Tab.rapdis, 4 MG PO Q4H Prescribed by: PATRICK GATES on 10/09/19 2300 Patient Home Medication List Home Medication List Reviewed: Yes Review of Systems Review of Systems Constitutional: no symptoms reported; No chills, No diaphoresis, No dizziness, No fever, No malaise, No weakness EENTM: see HPI, other (DENTAL PAIN ); No ear pain, No hoarseness Respiratory: no symptoms reported; No cough, No short of breath Cardiovascular: no symptoms reported; No chest pain Gastrointestinal: see HPI; No abdominal pain, No diarrhea; nausea, vomiting Genitourinary: no symptoms reported; No decreased output Musculoskeletal: no symptoms reported Skin: see HPI, pruritus, rash Psychiatric/Neurological: No Symptoms Reported Hematologic/Lymphatic: No Symptoms Reported Immunological/Allergic: no symptoms reported Past [id number] Hx Past Med/Social Hx: Reviewed and Corrections made Patient Social History Alcohol Use: Denies Use Recreational Drug Use: No Smoking Status: Never a Smoker 2nd Hand Smoke Exposure: No Recent Foreign Travel: No Contact w/Someone Who Travel: No Recent Infectious Disease Expo: No Recent Hopitalizations: No Physical Abuse: No Sexual Abuse: No Mistreated: No Fear: No Immunizations Up To Date PED Vaccines UTD: Yes Seasonal Allergies Seasonal Allergies: No Past Medical History Surgeries: Yes (CHOLECYSTECTOMY 2017) Gallbladder Respiratory: No Cardiac: No Neurological: Yes (REPORTED SEIZURES WITH MULTIPLE ER VISITS--NO WITNESSED S EIZURES ) Headaches /Migraines, Seizure Disorder Female Reproductive Disorders: Denies Genitourinary: No Gastrointestinal: Yes (S/P CHOLECYSTECTOMY) Gall Bladder Disease Musculoskeletal: No Endocrine: No HEENT: No Cancer: No Psychosocial: No Integumentary: No Blood Disorders: No Family Medical History No Pertinent Family Hx Physical Exam Vital Signs Vital Signs - First Documented 10/09/19 10/09/19 21:23 23:09 Temp 36.6 Pulse 84 Resp 20 B/P (MAP) 137/83 (101) Pulse Ox 100 O2 Delivery Room Air Capillary Refill : Less Than 3 Seconds Height, Weight, BMI Height: 5'6.00" Weight: 180lbs. oz. [id number]; 41.00 BMI Method:Stated General Appearance: No Apparent Distress, Obese HEENT: PERRL/EOMI, TMs Normal, Other (LEFT LOWER 3RD MOLAR APPEARS TO BE BROKEN WITH DENTAL CARIES, WITH MILD SURROUNDING GUM INFLAMMATION. NO OBVIOUS ABSCESS. NO SWELLING TO FACE. NO TRISMUS. NO SWELLING TO LIPS OR TONGUE. 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 ) Progress/Results/Core Measures Suspected Sepsis Recent Fever Within 48 Hours: No Infection Criteria Present: None New/Unexplained Altered Menta: No Sepsis Screen: No Definite Risk SIRS Temperature: Pulse: 84 Respiratory Rate: 20 Laboratory Tests 10/09/19 21:55: White Blood Count 8.9 Blood Pressure 137 /83 Mean: 101 Laboratory Tests 10/09/19 21:55: Creatinine 0.77, Platelet Count 379, Total Bilirubin 0.5 Results/Orders Lab Results Laboratory Tests Test 10/09/19 21:55 10/09/19 22:25 Range/Units White Blood Count 8.9 4.3-11.0 10^3/uL Red Blood Count 4.48 4.35-5.85 10^6/uL Hemoglobin 12.6 11.5-16.0 G/DL Hematocrit 37 35-52 % Mean Corpuscular Volume 84 80-99 FL Mean Corpuscular Hemoglobin 28 25-34 PG Mean Corpuscular Hemoglobin Concent 34 32-36 G/DL Red Cell Distribution Width 13.1 10.0-14.5 % Platelet Count 379 130-400 10^3/uL Mean Platelet Volume 9.0 7.4-10.4 FL Neutrophils (%) (Auto) 71 42-75 % Lymphocytes (%) (Auto) 22 12-44 % Monocytes (%) (Auto) 7 0-12 % Eosinophils (%) (Auto) 1 0-10 % Basophils (%) (Auto) 0 0-10 % Neutrophils # (Auto) 6.3 1.8-7.8 X 10^3 Lymphocytes # (Auto) 1.9 1.0-4.0 X 10^3 Monocytes # (Auto) 0.6 0.0-1.0 X 10^3 Eosinophils # (Auto) 0.0 0.0-0.3 10^3/uL Basophils # (Auto) 0.0 0.0-0.1 10^3/uL Sodium Level 138 135-145 MMOL/L Potassium Level 3.8 3.6-5.0 MMOL/L Chloride Level 104 98-107 MMOL/L Carbon Dioxide Level 22 21-32 MMOL/L Anion Gap 12 5-14 MMOL/L Blood Urea Nitrogen 10 7-18 MG/DL Creatinine 0.77 0.60-1.30 MG/DL Estimat Glomerular Filtration Rate > 60 BUN/Creatinine Ratio 13 Glucose Level 109 H 70-105 MG/DL Calcium Level 9.5 8.5-10.1 MG/DL Corrected Calcium 9.3 8.5-10.1 MG/DL Total Bilirubin 0.5 0.1-1.0 MG/DL Aspartate Amino Transf (AST/SGOT) 38 H 5-34 U/L Alanine Aminotransferase (ALT/SGPT) 30 0-55 U/L Alkaline Phosphatase 117 40-136 U/L Total Protein 8.4 H 6.4-8.2 GM/DL Albumin 4.2 3.2-4.5 GM/DL Amylase Level 55 25-125 U/L Lipase 19 8-78 U/L Serum Test, Qualitative NEGATIVE NEGATIVE Urine Color YELLOW Urine Clarity CLEAR Urine pH 5.5 5-9 Urine Specific [place] >=1.030 1.016-1.022 Urine Protein 1+ H NEGATIVE Urine Glucose (UA) NEGATIVE NEGATIVE Urine Ketones NEGATIVE NEGATIVE Urine Nitrite NEGATIVE NEGATIVE Urine Bilirubin 1+ H NEGATIVE Urine Urobilinogen 1.0 < = 1.0 MG/DL Urine Leukocyte Esterase NEGATIVE NEGATIVE Urine RBC (Auto) NEGATIVE NEGATIVE Urine RBC 0-2 /HPF Urine WBC 0-2 /HPF Urine Crystals PRESENT H /LPF Urine Amorphous Sediment FEW CECILIO URATES H /LPF Urine Bacteria TRACE /HPF Urine Casts NONE /LPF Urine Mucus SMALL H /LPF Urine Culture Indicated NO My Orders Orders - PATRICK GATES DO Ed Iv/Invasive Line Start (10/09/19 21:38) Amylase (10/09/19 21:38) Cbc With Automated Diff (10/09/19 21:38) Comprehensive Metabolic Panel (10/09/19 21:38) Hcg,Qualitative Serum (10/09/19 21:38) Lipase (10/09/19 21:38) Ua Culture If Indicated (10/09/19 21:38) Ed Iv/Invasive Line Start (10/09/19 21:38) Lactated Ringers (Lr 1000 Ml Iv Solution (10/09/19 21:38) Ondansetron Injection (Zofran Injectio (10/09/19 21:45) Diphenhydramine Injection (Benadryl Inje (10/09/19 21:38) Methylprednisolone Sod Succ (Solu-Medrol (10/09/19 21:38) Famotidine Injection (Pepcid Injection) (10/09/19 21:45) Rx-Ondansetron Po (Rx-Zofran Po) (10/09/19 22:56) Medications Given in ED Current Medications Medications Dose Ordered Sig/Bulmaro Route Start Time Stop Time Status Last Admin Dose Admin Famotidine 40 mg ONCE ONCE IVP 10/09/19 21:45 10/09/19 21:46 DC 10/09/19 21:55 40 MG Lactated Ringer's 1,000 ml @ 0 mls/hr Q0M ONCE IV 10/09/19 21:38 10/09/19 21:40 DC 10/09/19 21:55 999 MLS/HR Ondansetron HCl 4 mg ONCE ONCE IVP 10/09/19 21:45 10/09/19 21:46 DC 10/09/19 21:55 4 MG Vital Signs/I&O 10/09/19 10/09/19 21:23 23:09 Temp 36.6 36.6 Pulse 84 80 Resp 20 18 B/P (MAP) 137/83 (101) 128/81 (101) Pulse Ox 100 O2 Delivery Room Air Room Air 10/10/19 00:00 Intake Total 1000 ml Balance 1000 ml Capillary Refill : Less Than 3 Seconds Blood Pressure Mean: 101 Progress Note : Progress Note GIVEN ZOFRAN FOR NAUSEA GIVEN BENADRYL, SOLU-MEDROL AND PEPCID FOR RASH ALL SYMPTOMS COMPLETELY RESOLVED AT DISMISASL Departure Impression Primary Impression: Nausea & vomiting Additional Impressions: POSSIBLE ALLERGIC REACTION TO MEDICATION Infected dental caries Disposition: 01 HOME, SELF-CARE Condition: Improved Departure-Patient Inst. Referrals: [facility] (PCP/Family) Primary Care Physician Patient Instructions: Drug Allergy, Nausea and Vomiting, Adult (DC) Add. Discharge Instructions: LOTS OF CLEAR LIQUIDS--WATER, BROTH, JELLO, GATORADE WHEN NAUSEA IS BETTER, AND NO LONGER VOMITING. ADD BRATS DIET TO CLEAR LIQUIDS--BANANAS, RICE, APPLESAUCE, TOAST, SALTINES TYLENOL AND MOTRIN NEEDED FOR PAIN HOLD TRAMADOL, CONTINUE AMOXIL BENADRYL 50 MG EVERY 4 HOURS NEEDED FOR RASH AND ITCHING FOLLOW UP WITH YOUR DR IN 1-2 DAYS IF SYMPTOMS PERSIST All discharge instructions reviewed with patient and/or family. Voiced understanding. Scripts Ondansetron (Ondansetron Odt) 4 Mg Tab.rapdis 4 MG PO Q4H for Nausea/Vomiting, #10 TAB Prov: PATRICK GATES DO 10/09/19 PATRICK GATES DO Oct 09, 2019 23:00
[2019-10-09 23:09] VITALS: BP 128/81
--- OUTSIDE RECORDS SUMMARY | 2019-10-09 23:50 | XMS REPORT | Continuity of Care Document ---
Author Organization Unknown Address Unknown Phone Unavailable Allergies Active Description Code Type Severity Reaction Onset Reported/Identified Relationship to Patient Clinical Status Yes No Known Drug Allergies [id number] Drug Allergy Unknown N/A 02/27/2017 Yes Sulfa (Sulfonamide Antibiotics) [id number] Drug Allergy Unknown N/A 018 Medications There is no data. 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 01/09/2017 MAYDA FERNANDO MD Ot R56.9 UNSPECIFIED CONVULSIONS 02/28/2017 JULES GATES DOA K Ot G40.909 EPILEPSY, UNSP, NOT INTRACTABLE, WITHOUT 02/28/2017 PATRICK GATES DO K Ot R31.29 OTHER MICROSCOPIC HEMATURIA 02/28/2017 PATRICK GATES DO K Ot R56.9 UNSPECIFIED CONVULSIONS 03/13/2017 MARCO BOLTON MD Ot G40.909 EPILEPSY, UNSP, NOT INTRACTABLE, WITHOUT 05/24/2017 MARCO BOLTON MD Ot G40.909 EPILEPSY, UNSP, NOT INTRACTABLE, WITHOUT 05/24/2017 MARCO BOLTON MD Ot G43.909 MIGRAINE, UNSP, NOT INTRACTABLE, WITHOUT 05/24/2017 MARCO BOLTON MD Ot R56.9 UNSPECIFIED CONVULSIONS 05/28/2017 MARCO BOLTON MD Ot G40.909 EPILEPSY, UNSP, NOT INTRACTABLE, WITHOUT 05/28/2017 MARCO BOLTON MD Ot G43.909 MIGRAINE, UNSP, NOT INTRACTABLE, WITHOUT 05/28/2017 MARCO BOLTON MD Ot R56.9 UNSPECIFIED CONVULSIONS 05/30/2017 MARCO BOLTON MD Ot G40.909 EPILEPSY, UNSP, NOT INTRACTABLE, WITHOUT 05/30/2017 CHE STERLING, MARCO Moran Ot G43.909 MIGRAINE, UNSP, NOT INTRACTABLE, WITHOUT 05/30/2017 CHE STERLING, MARCO Moran Ot R56.9 UNSPECIFIED CONVULSIONS 06/08/2017 KASSIE STERLING, MAYDA T Ot G43.909 MIGRAINE, UNSP, NOT INTRACTABLE, WITHOUT 06/08/2017 KASSIE STERLING, MAYDA T Ot R04.0 EPISTAXIS 06/08/2017 KASSIE STERLING, MAYDA T Ot R56.9 UNSPECIFIED CONVULSIONS 06/08/2017 KASSIE STERLING, MAYDA T Ot Z88.2 ALLERGY STATUS TO SULFONAMIDES STATUS 07/11/2017 CHE STERLING, MARCO Moran Ot G40.909 EPILEPSY, UNSP, NOT INTRACTABLE, WITHOUT 07/11/2017 CHE STERLING, MARCO Moran Ot G43.909 MIGRAINE, UNSP, NOT INTRACTABLE, WITHOUT 07/11/2017 CHE STERLING, MARCO Moran Ot Z88.2 ALLERGY STATUS TO SULFONAMIDES STATUS 07/13/2017 MARCO BOLTON MD Ot G40.909 EPILEPSY, UNSP, NOT INTRACTABLE, WITHOUT 07/13/2017 MARCO BOLTON MD Ot G43.909 MIGRAINE, UNSP, NOT INTRACTABLE, WITHOUT 07/13/2017 CHE STERLING, MARCO Moran Ot Z88.2 ALLERGY STATUS TO SULFONAMIDES STATUS 08/12/2017 MARCO BOLTON MD Ot G40.909 EPILEPSY, UNSP, NOT INTRACTABLE, WITHOUT 08/12/2017 MARCO BOLTON MD Ot G43.909 MIGRAINE, UNSP, NOT INTRACTABLE, WITHOUT 08/12/2017 CHE STERLING, MARCO Moran Ot Z88.2 ALLERGY STATUS TO SULFONAMIDES STATUS 08/18/2017 KASSIE STERLING, MAYDA T Ot G40.909 EPILEPSY, UNSP, NOT INTRACTABLE, WITHOUT 08/18/2017 KASSIE STERLING, MAYDA T Ot G43.909 MIGRAINE, UNSP, NOT INTRACTABLE, WITHOUT 08/18/2017 KASSIE STERLING, MAYDA T Ot R01.1 CARDIAC MURMUR, UNSPECIFIED 08/18/2017 KASSIE STERLING, MAYDA Osorio Ot R44.3 HALLUCINATIONS, UNSPECIFIED 08/18/2017 KASSIE STERLING, MAYDA Osorio Ot Z88.2 ALLERGY STATUS TO SULFONAMIDES STATUS 08/18/2017 KASSIE STERLING, MAYDA Osorio Ot Z98.890 OTHER SPECIFIED POSTPROCEDURAL STATES 08/21/2017 KASSIE STERLING, MAYDA T Ot G40.909 EPILEPSY, UNSP, NOT INTRACTABLE, WITHOUT 08/21/2017 KASSIE STERLING, MAYDA T Ot G43.909 MIGRAINE, UNSP, NOT INTRACTABLE, WITHOUT 08/21/2017 KASSIE STERLING, MAYDA Osorio Ot R01.1 CARDIAC MURMUR, UNSPECIFIED 08/21/2017 KASSIE STERLING, MAYDA Osorio Ot R44.3 HALLUCINATIONS, UNSPECIFIED 08/21/2017 KASSIE STERLING, MAYDA Osorio Ot Z88.2 ALLERGY STATUS TO SULFONAMIDES STATUS 08/21/2017 KASSIE STERLING, MAYDA Osorio Ot Z98.890 OTHER SPECIFIED POSTPROCEDURAL STATES 12/25/2017 WEN STERLING, VICTORIA Paz Ot H53.2 DIPLOPIA 12/25/2017 WEN STERLING, VICTORIA Paz Ot R56.9 UNSPECIFIED CONVULSIONS 12/25/2017 WEN STERLING, VICTORIA Paz Ot W19.XXXA UNSPECIFIED FALL, INITIAL ENCOUNTER 01/21/2018 ROBERTO BOWEN APRN Ot G40.909 EPILEPSY, UNSP, NOT INTRACTABLE, WITHOUT 01/21/2018 ROBERTO BOWEN APRN Ot G43.909 MIGRAINE, UNSP, NOT INTRACTABLE, WITHOUT 01/21/2018 ROBERTO BOWEN APRN Ot R56 .9 UNSPECIFIED CONVULSIONS 01/21/2018 ROBERTO BOWEN APRN Ot S20.211A CONTUSION OF RIGHT FRONT WALL OF THORAX, 01/21/2018 ROBERTO BOWEN APRN Ot W19.XXXA UNSPECIFIED FALL, INITIAL ENCOUNTER 01/21/2018 ROBERTO BOWEN FELT H[employer] FLANGING OPERATOR Ot W22.09XA STRIKING AGAINST OTHER STATIONARY OBJECT 01/21/2018 ROBERTO BOWEN FELT HAT FLANGING OPERATOR Ot Z88 .2 ALLERGY STATUS TO SULFONAMIDES STATUS 01/23/2018 ROBERTO BOWEN APRN Ot G40.909 EPILEPSY, UNSP, NOT INTRACTABLE, WITHOUT 01/23/2018 ROBERTO BOWEN APRN Ot G43.909 MIGRAINE, UNSP, NOT INTRACTABLE, WITHOUT 01/23/2018 ROBERTO BOWEN APRN Ot R56 .9 UNSPECIFIED CONVULSIONS 01/23/2018 ROBERTO BOWEN APRN Ot S20.211A CONTUSION OF RIGHT FRONT WALL OF THORAX, 01/23/2018 ROBERTO BOWEN APRN Ot W19.XXXA UNSPECIFIED FALL, INITIAL ENCOUNTER 01/23/2018 ROBERTO BOWEN APRN Ot W22.09XA STRIKING AGAINST OTHER STATIONARY OBJECT 01/23/2018 ROBERTO BOWEN APRN Ot Z88 .2 ALLERGY STATUS TO SULFONAMIDES STATUS 01/23/2018 WEN STERLING, VICTORIA Paz Ot H53.2 DIPLOPIA 01/23/2018 WEN STERLING, VICTORIA Paz Ot R56.9 UNSPECIFIED CONVULSIONS 01/23/2018 WEN STERLING, VICTORIA Paz Ot W19.XXXA UNSPECIFIED FALL, INITIAL ENCOUNTER 01/27/2018 ROBERTO BOWEN APRN Ot G40.909 EPILEPSY, UNSP, NOT INTRACTABLE, WITHOUT 01/27/2018 ROBERTO BOWEN APRN Ot G43.909 MIGRAINE, UNSP, NOT INTRACTABLE, WITHOUT 01/27/2018 ROBERTO BOWEN APRN Ot R56 .9 UNSPECIFIED CONVULSIONS 01/27/2018 ROBERTO BOWEN APRN Ot S20.211A CONTUSION OF RIGHT FRONT WALL OF THORAX, 01/27/2018 ROBERTO BOWEN APRN Ot W19.XXXA UNSPECIFIED FALL, INITIAL ENCOUNTER 01/27/2018 ROBERTO BOWEN APRN Ot W22.09XA STRIKING AGAINST OTHER STATIONARY OBJECT 01/27/2018 ROBERTO BOWEN APRN Ot Z88 .2 ALLERGY STATUS TO SULFONAMIDES STATUS 02/11/2018 MARCO BOLTON MD Ot G40.909 EPILEPSY, UNSP, NOT INTRACTABLE, WITHOUT 02/11/2018 MARCO BOLTON MD Ot G43.909 MIGRAINE, UNSP, NOT INTRACTABLE, WITHOUT 02/11/2018 MARCO BOLTON MD Ot R56.9 UNSPECIFIED CONVULSIONS 02/11/2018 MARCO BOLTON MD Ot S20.211A CONTUSION OF RIGHT FRONT WALL OF THORAX, 02/11/2018 MARCO BOLTON MD Ot W01.190A FALL SAME LEV FROM SLIP/TRIP W STRIKE AG 02/11/2018 MARCO BOLTON MD Ot Y92.[address] IN [facility] NON[facility] (PRIVATE 02/11/2018 MARCO BOLTON MD Ot Z88.2 ALLERGY STATUS TO SULFONAMIDES STATUS 02/13/2018 MARCO BOLTON MD Ot G40.909 EPILEPSY, UNSP, NOT INTRACTABLE, WITHOUT 02/13/2018 MARCO BOLTON MD Ot G43.909 MIGRAINE, UNSP, NOT INTRACTABLE, WITHOUT 02/13/2018 MARCO BOLTON MD Ot R56.9 UNSPECIFIED CONVULSIONS 02/13/2018 MARCO BOLTON MD Ot S20.211A CONTUSION OF RIGHT FRONT WALL OF THORAX, 02/13/2018 MARCO BOLTON MD Ot W01.190A FALL SAME LEV FROM SLIP/TRIP W STRIKE AG 02/13/2018 MARCO BOLTON MD Ot Y92.[address] IN [facility] ([facility]IVATE 02/13/2018 MARCO BOLTON MD Ot Z88.2 ALLERGY STATUS TO SULFONAMIDES STATUS 02/25/2018 BERNOT, IRINEO Ot G40.909 EPILEPSY, UNSP, NOT INTRACTABLE, WITHOUT 02/25/2018 BERNOT IRINEO Ot G43.909 MIGRAINE, UNSP, NOT INTRACTABLE, WITHOUT 02/25/2018 BERNOT IRINEO Ot R56.9 UNSPECIFIED CONVULSIONS 02/25/2018 RONY PAYANIS Ot Z88.2 ALLERGY STATUS TO SULFONAMIDES STATUS 02/27/2018 BERNOT, IRINEO Ot G40.909 EPILEPSY, UNSP, NOT INTRACTABLE, WITHOUT 02/27/2018 BERNOT, IRINEO Ot G43.909 MIGRAINE, UNSP, NOT INTRACTABLE, WITHOUT 02/27/2018 BERNOT, IRINEO Ot R56.9 UNSPECIFIED CONVULSIONS 02/27/2018 BERNRONY BUCKIS Ot Z88.2 ALLERGY STATUS TO SULFONAMIDES STATUS 03/27/2018 PATRICK GATES DO K Ot G40.909 EPILEPSY, UNSP, NOT INTRACTABLE, WITHOUT 03/27/2018 PATRICK GATES DO K Ot G43.909 MIGRAINE, UNSP, NOT INTRACTABLE, WITHOUT 03/27/2018 YAJAIRA GONZALEZ PATRICK K Ot I88.0 NONSPECIFIC MESENTERIC LYMPHADENITIS 03/27/2018 YAJAIRA DO PATRICK K Ot R10.33 PERIUMBILICAL PAIN 03/27/2018 JULES GATES DOA K Ot Z88.2 ALLERGY STATUS TO SULFONAMIDES STATUS 03/28/2018 MARCO BOLTON MD Ot G40.909 EPILEPSY, UNSP, NOT INTRACTABLE, WITHOUT 03/28/2018 MARCO BOLTON MD Ot G43.909 MIGRAINE, UNSP, NOT INTRACTABLE, WITHOUT 03/28/2018 MARCO BOLTON MD Ot I88.0 NONSPECIFIC MESENTERIC LYMPHADENITIS 03/28/2018 MARCO BOLTON MD Ot R10.31 RIGHT LOWER QUADRANT PAIN 03/28/2018 MARCO BOLTON MD Ot R11.2 NAUSEA WITH VOMITING, UNSPECIFIED 03/28/2018 MARCO BOLTON MD Ot Z88.2 ALLERGY STATUS TO SULFONAMIDES STATUS 03/28/2018 MARCO BOLTON MD Ot Z90.89 ACQUIRED ABSENCE OF OTHER ORGANS 03/29/2018 YAJAIRA GONZALEZ PATRICK K Ot G40.909 EPILEPSY, UNSP, NOT INTRACTABLE, WITHOUT 03/29/2018 YAJAIRA GONZALEZ PATRICK K Ot G43.909 MIGRAINE, UNSP, NOT INTRACTABLE, WITHOUT 03/29/2018 YAJAIRA GONZALEZ PATRICK K Ot I88.0 NONSPECIFIC MESENTERIC LYMPHADENITIS 03/29/2018 YAJAIRA GONZALEZ PATRICK K Ot R10.33 PERIUMBILICAL PAIN 03/29/2018 JULES GATES DOA K Ot Z88.2 ALLERGY STATUS TO SULFONAMIDES STATUS 04/01/2018 MARCO BOLTON MD Ot G40.909 EPILEPSY, UNSP, NOT INTRACTABLE, WITHOUT 04/01/2018 MARCO BOLTON MD Ot G43.909 MIGRAINE, UNSP, NOT INTRACTABLE, WITHOUT 04/01/2018 MARCO BOLTON MD Ot I88.0 NONSPECIFIC MESENTERIC LYMPHADENITIS 04/01/2018 MARCO BOLTON MD Ot R10.31 RIGHT LOWER QUADRANT PAIN 04/01/2018 MARCO BOLTON MD Ot R11.2 NAUSEA WITH VOMITING, UNSPECIFIED 04/01/2018 MARCO BOLTON MD Ot Z88.2 ALLERGY STATUS TO SULFONAMIDES STATUS 04/01/2018 CHE STERLING, MARCO Moran Ot Z90.89 ACQUIRED ABSENCE OF OTHER ORGANS 05/22/2018 YAJAIRA DO, PATRICK K Ot G40.909 EPILEPSY, UNSP, NOT INTRACTABLE, WITHOUT 05/22/2018 YAJAIRA DO, PATRICK K Ot G43.909 MIGRAINE, UNSP, NOT INTRACTABLE, WITHOUT 05/22/2018 YAJAIRA DO, PATRICK K Ot J06.9 ACUTE UPPER RESPIRATORY INFECTION, UNSPE 05/22/2018 YAJAIRA DO, PATRICK K Ot N39.0 URINARY TRACT INFECTION, SITE NOT SPECIF 05/22/2018 YAJAIRA DO, PATRICK K Ot R56.9 UNSPECIFIED CONVULSIONS 05/22/2018 YAJAIRA DO, PATRICK K Ot Z88.0 ALLERGY STATUS TO PENICILLIN 05/22/2018 YAJAIRA DO, PATRICK K Ot Z98.890 OTHER SPECIFIED POSTPROCEDURAL STATES 05/23/2018 YAJAIRA DO, PATRICK K Ot G40.909 EPILEPSY, UNSP, NOT INTRACTABLE, WITHOUT 05/23/2018 YAJAIRA DO, PATRICK K Ot G43.909 MIGRAINE, UNSP, NOT INTRACTABLE, WITHOUT 05/23/2018 YAJAIRA DO, PATRICK K Ot J06.9 ACUTE UPPER RESPIRATORY INFECTION, UNSPE 05/23/2018 YAJAIRA DO, PATRICK K Ot N39.0 URINARY TRACT INFECTION, SITE NOT SPECIF 05/23/2018 YAJAIRA DO, PATRICK K Ot R56.9 UNSPECIFIED CONVULSIONS 05/23/2018 YAJAIRA DO, PATRICK K Ot Z88.0 ALLERGY STATUS TO PENICILLIN 05/23/2018 YAJAIRA DO, PATRICK K Ot Z98.890 OTHER SPECIFIED POSTPROCEDURAL STATES 01/29/2019 ROBERTO BOWEN APRN Ot G40.909 EPILEPSY, UNSP, NOT INTRACTABLE, WITHOUT 01/29/2019 ROBERTO BOWEN APRN Ot G43.909 MIGRAINE, UNSP, NOT INTRACTABLE, WITHOUT 01/29/2019 ROBERTO BOWEN APRN Ot R56 .9 UNSPECIFIED CONVULSIONS 01/29/2019 ROBERTO BOWEN APRN Ot S80.01XA CONTUSION OF RIGHT KNEE, INITIAL ENCOUNT 01/29/2019 ROBERTO BOWEN APRN Ot S80.02XA CONTUSION OF LEFT KNEE, INITIAL ENCOUNTE 01/29/2019 ROBERTO BOWEN APRN Ot W10.9XXA FALL (ON) (FROM) UNSPECIFIED STAIRS AND 01/29/2019 ROBERTO BOWEN APRN Ot Z88 .2 ALLERGY STATUS TO SULFONAMIDES STATUS 01/31/2019 ROBERTO BOWEN APRN Ot G40.909 EPILEPSY, UNSP, NOT INTRACTABLE, WITHOUT 01/31/2019 ROBERTO BOWEN APRN Ot G43.909 MIGRAINE, UNSP, NOT INTRACTABLE, WITHOUT 01/31/2019 ROBERTO BOWEN APRN Ot R56 .9 UNSPECIFIED CONVULSIONS 01/31/2019 ROBERTO BOWEN APRN Ot S80.01XA CONTUSION OF RIGHT KNEE, INITIAL ENCOUNT 01/31/2019 ROBERTO BOWEN APRN Ot S80.02XA CONTUSION OF LEFT KNEE, INITIAL ENCOUNTE 01/31/2019 ROBERTO BOWEN APRN Ot W10.9XXA FALL (ON) (FROM) UNSPECIFIED STAIRS AND 01/31/2019 ROBERTO BOWEN APRN Ot Z88 .2 ALLERGY STATUS TO SULFONAMIDES STATUS 03/11/2019 ROBERTO BOWEN APRN Ot G40.909 EPILEPSY, UNSP, NOT INTRACTABLE, WITHOUT 03/11/2019 ROBERTO BOWEN APRN Ot G43.909 MIGRAINE, UNSP, NOT INTRACTABLE, WITHOUT 03/11/2019 ROBERTO BOWEN APRN Ot R56 .9 UNSPECIFIED CONVULSIONS 03/11/2019 ROBERTO BOWEN APRN Ot S80.01XA CONTUSION OF RIGHT KNEE, INITIAL ENCOUNT 03/11/2019 ROBERTO BOWEN APRN Ot S80.02XA CONTUSION OF LEFT KNEE, INITIAL ENCOUNTE 03/11/2019 ROBERTO BOWEN APRN Ot W10.9XXA FALL (ON) (FROM) UNSPECIFIED STAIRS AND 03/11/2019 ROBERTO BOWEN APRN Ot Z88 .2 ALLERGY STATUS TO SULFONAMIDES STATUS 09/23/2019 VICTORIA CARVER MD Ot H53.2 DIPLOPIA 09/23/2019 VICTORIA CARVER MD Ot R56.9 UNSPECIFIED CONVULSIONS 09/23/2019 VICTORIA CARVER MD Ot W19.XXXA UNSPECIFIED FALL, INITIAL ENCOUNTER 09/25/2019 VICTORIA CARVER MD Ot 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 Results Test Result Range Complete blood count (CBC) with automate d white blood cell (WBC) differential - 01/08/17 22:30 Blood leukocytes automated count (number/volume) 7.7 10*3/uL 4.3-11.0 Blood erythrocytes automated count (number/volume) 4.25 10*6/uL 4.35-5.85 Venous blood hemoglobin measurement (mass/volume) 11.5 g/dL 11.5-16.0 Blood hematocrit (volume fraction) 35 % 35-52 Automated erythrocyte mean corpuscular volume 82 [ foz_us] 80-99 Automated erythrocyte mean corpuscular h emoglobin (mass per erythrocyte) 27 pg 25-34 Automated erythrocyte mean corpuscular h emoglobin concentration measurement (mass/volume) 33 g/dL 32-36 Automated erythrocyte distribution width ratio 13. 8 % 10.0- 14.5 Automated blood platelet count (count/volume) 351 10*3/uL 130-400 Automated blood platelet mean volume measurement 9.5 [foz_us] 7.4-10.4 Automated blood neutrophils/100 leukocytes 47 % 42-75 Automated blood lymphocytes/100 leukocytes 43 % 12-44 Blood monocytes/100 leukocytes 8 % 0-12 Automated blood eosinophils/100 leukocytes 2 % 0-10 Automated blood basophils/100 leukocytes 0 % 0-10 Blood neutrophils automated count (number/volume) 3.6 10*3 1.8-7.8 Blood lymphocytes automated count (number/volume) 3.3 10*3 1.0-4.0 Blood monocytes automated count (number/volume) 0. 6 10*3 0.0-1.0 Automated eosinophil count 0.1 10*3/uL 0 .0-0.3 Automated blood basophil count (count/volume) 0.0 10*3/uL 0.0-0.1 Serum or plasma choriogonadotropin (preg koby test) detection - 01/08/17 22:30 Serum or plasma choriogonadotropin ( test) de tection NEGATIVE NEGATIVE Comprehensive metabolic panel - 01/08/17 22:30 Serum or plasma sodium measurement (moles/volume) 142 mmol/L 135-145 Serum or plasma potassium measurement (moles/volume) 3.4 mmol/L 3.6-5.0 Serum or plasma chloride measurement (moles/volume) 112 mmol/L 98-107 Carbon dioxide 19 mmol/L 21-32 Serum or plasma anion gap determination (moles/volume) 11 mmol/L 5-14 Serum or plasma urea nitrogen measurement (mass/volume ) 7 mg/dL 7-18 Serum or plasma creatinine measurement (mass/volume) 0.77 mg/dL 0.60-1.30 Serum or plasma urea nitrogen/creatinine mass ratio 9 NRG Serum or plasma creatinine measurement w ith calculation of estimated glomerular filtration rate > NRG Serum or plasma glucose measurement (mass/volume) 103 mg/dL 70-105 Serum or plasma calcium measurement (mass/volume) 9.2 mg/dL 8.5-10.1 Serum or plasma total bilirubin measurement (mass/volu me) 0.4 mg/dL 0.1-1.0 Serum or plasma alkaline phosphatase kodak surement (enzymatic activity/volume) 85 U/L 60-350 Serum or plasma aspartate aminotransfera se measurement (enzymatic activity/volume) 18 U/L 5-34 Serum or plasma alanine aminotransferase measurement (enzymatic activity/volume) 19 U/L 0-55 Serum or plasma protein measurement (mass/volume) 7.7 g/dL 6.4-8.2 Serum or plasma albumin measurement (mass/volume) 4.1 g/dL 3.2-4.5 Magnesium - 01/08/17 22:30 Magnesium 2.0 mg/dL 1.8-2.4 Complete urinalysis with reflex to cultu re - 01/09/17 00:10 Urine color determination YELLOW NRG Urine clarity determination CLEAR NR G Urine pH measurement by test strip 8 5-9 Specific gravity of urine by test strip 1.015 1.016-1.022 Urine protein assay by test strip, semi-quantitative NEGATIVE NEGATIVE Urine glucose detection by automated test strip NE GATIVE NEGATIVE Erythrocytes detection in urine sediment by light micr oscopy NEGATIVE NEGATIVE Urine ketones detection by automated test strip NE GATIVE NEGATIVE Urine nitrite detection by test strip NEGATIVE NEGATIVE Urine total bilirubin detection by test strip NEGA TIVE NEGATIVE Urine urobilinogen measurement by automated test strip (mass/volume) NORMAL NORMAL Urine leukocyte esterase detection by dipstick NEG ATIVE NEGATIVE Automated urine sediment erythrocyte cou nt by microscopy (number/high power field) NONE NRG Automated urine sediment leukocyte count by microscopy (number/high power field) NONE NRG Bacteria detection in urine sediment by light microsco py NEGATIVE NRG Squamous epithelial cells detection in u rine sediment by light microscopy 2-5 NRG Crystals detection in urine sediment by light microsco py NONE NRG Casts detection in urine sediment by light microscopy NONE NRG Mucus detection in urine sediment by light microscopy NEGATIVE NRG Complete urinalysis with reflex to culture NO NRG Complete urinalysis with reflex to cultu re - 02/27/17 23:35 Urine color determination YELLOW NRG Urine clarity determination SLIGHTLY CLOUDY NRG Urine pH measurement by test strip 7 5-9 Specific gravity of urine by test strip 1.010 1.016-1.022 Urine protein assay by test strip, semi-quantitative NEGATIVE NEGATIVE Urine glucose detection by automated test strip NE GATIVE NEGATIVE Erythrocytes detection in urine sediment by light micr oscopy 4+ NEGATIVE Urine ketones detection by automated test strip NE GATIVE NEGATIVE Urine nitrite detection by test strip NEGATIVE NEGATIVE Urine total bilirubin detection by test strip NEGA TIVE NEGATIVE Urine urobilinogen measurement by automated test strip (mass/volume) NORMAL NORMAL Urine leukocyte esterase detection by dipstick NEG ATIVE NEGATIVE Automated urine sediment erythrocyte cou nt by microscopy (number/high power field) [HPF] NRG Automated urine sediment leukocyte count by microscopy (number/high power field) NONE NRG Bacteria detection in urine sediment by light microsco py TRACE NRG Squamous epithelial cells detection in u rine sediment by light microscopy 5-10 NRG Crystals detection in urine sediment by light microsco py PRESENT NRG Casts detection in urine sediment by light microscopy NONE NRG Mucus detection in urine sediment by light microscopy NEGATIVE NRG Complete urinalysis with reflex to culture NO NRG Amorphous sediment detection in urine sediment by ligh t microscopy FEW CECILIO PHOSPHATE NRG Urine drug screening test - 02/27/17 23: 35 Urine phencyclidine detection by screening method NEGATIVE NEGATIVE Urine benzodiazepines detection by screening method NEGATIVE NEGATIVE Urine cocaine detection NEGATIVE NEGATI VE Urine amphetamines detection by screening method N EGATIVE NEGATIVE Urine methamphetamine detection by screening method NEGATIVE NEGATIVE Urine cannabinoids detection by screening method N EGATIVE NEGATIVE Urine opiates detection by screening method NEGATI VE NEGATIVE Urine barbiturates detection NEGATIVE N EGATIVE Screening urine tricyclic antidepressants detection NEGATIVE NEGATIVE Urine methadone detection by screening method NEGA TIVE NEGATIVE Urine oxycodone detection NEGATIVE NEGA TIVE Urine propoxyphene detection NEGATIVE N EGATIVE Complete blood count (CBC) with automate d white blood cell (WBC) differential - 02/27/17 23:40 Blood leukocytes automated count (number/volume) 9.6 10*3/uL 4.3-11.0 Blood erythrocytes automated count (number/volume) 4.64 10*6/uL 4.35-5.85 Venous blood hemoglobin measurement (mass/volume) 12.6 g/dL 11.5-16.0 Blood hematocrit (volume fraction) 38 % 35-52 Automated erythrocyte mean corpuscular volume 81 [ foz_us] 80-99 Automated erythrocyte mean corpuscular h emoglobin (mass per erythrocyte) 27 pg 25-34 Automated erythrocyte mean corpuscular h emoglobin concentration measurement (mass/volume) 34 g/dL 32-36 Automated erythrocyte distribution width ratio 15. 0 % 10.0- 14.5 Automated blood platelet count (count/volume) 308 10*3/uL 130-400 Automated blood platelet mean volume measurement 9.7 [foz_us] 7.4-10.4 Automated blood neutrophils/100 leukocytes 57 % 42-75 Automated blood lymphocytes/100 leukocytes 32 % 12-44 Blood monocytes/100 leukocytes 9 % 0-12 Automated blood eosinophils/100 leukocytes 1 % 0-10 Automated blood basophils/100 leukocytes 0 % 0-10 Blood neutrophils automated count (number/volume) 5.5 10*3 1.8-7.8 Blood lymphocytes automated count (number/volume) 3.1 10*3 1.0-4.0 Blood monocytes automated count (number/volume) 0. 9 10*3 0.0-1.0 Automated eosinophil count 0.1 10*3/uL 0 .0-0.3 Automated blood basophil count (count/volume) 0.0 10*3/uL 0.0-0.1 Serum or plasma choriogonadotropin (preg koby test) detection - 02/27/17 23:40 Serum or plasma choriogonadotropin ( test) de tection NEGATIVE NEGATIVE Comprehensive metabolic panel - 02/27/17 23:40 Serum or plasma sodium measurement (moles/volume) 139 mmol/L 135-145 Serum or plasma potassium measurement (moles/volume) 3.5 mmol/L 3.6-5.0 Serum or plasma chloride measurement (moles/volume) 109 mmol/L 98-107 Carbon dioxide 19 mmol/L 21-32 Serum or plasma anion gap determination (moles/volume) 11 mmol/L 5-14 Serum or plasma urea nitrogen measurement (mass/volume ) 7 mg/dL 7-18 Serum or plasma creatinine measurement (mass/volume) 0.76 mg/dL 0.60-1.30 Serum or plasma urea nitrogen/creatinine mass ratio 9 NRG Serum or plasma creatinine measurement w ith calculation of estimated glomerular filtration rate > NRG Serum or plasma glucose measurement (mass/volume) 112 mg/dL 70-105 Serum or plasma calcium measurement (mass/volume) 9.6 mg/dL 8.5-10.1 Serum or plasma total bilirubin measurement (mass/volu me) 0.2 mg/dL 0.1-1.0 Serum or plasma alkaline phosphatase kodak surement (enzymatic activity/volume) 95 U/L 60-350 Serum or plasma aspartate aminotransfera se measurement (enzymatic activity/volume) 15 U/L 5-34 Serum or plasma alanine aminotransferase measurement (enzymatic activity/volume) 14 U/L 0-55 Serum or plasma protein measurement (mass/volume) 8.0 g/dL 6.4-8.2 Serum or plasma albumin measurement (mass/volume) 4.3 g/dL 3.2-4.5 Magnesium - 02/27/17 23:40 Magnesium 2.1 mg/dL 1.8-2.4 Serum or plasma thyrotropin measurement by detection limit <=0.05 miu/l (units/volume) - 02/27/17 23:40 Serum or plasma thyrotropin measurement by detection limit <=0.05 miu/l (units/volume) 1.25 u[iU]/mL 0.35-4.94 Complete blood count (CBC) with automate d white blood cell (WBC) differential - 03/13/17 05:30 Blood leukocytes automated count (number/volume) 6.6 10*3/uL 4.3-11.0 Blood erythrocytes automated count (number/volume) 4.31 10*6/uL 4.35-5.85 Venous blood hemoglobin measurement (mass/volume) 12.0 g/dL 11.5-16.0 Blood hematocrit (volume fraction) 36 % 35-52 Automated erythrocyte mean corpuscular volume 83 [ foz_us] 80-99 Automated erythrocyte mean corpuscular h emoglobin (mass per erythrocyte) 28 pg 25-34 Automated erythrocyte mean corpuscular h emoglobin concentration measurement (mass/volume) 34 g/dL 32-36 Automated erythrocyte distribution width ratio 15. 3 % 10.0- 14.5 Automated blood platelet count (count/volume) 320 10*3/uL 130-400 Automated blood platelet mean volume measurement 9.5 [foz_us] 7.4-10.4 Automated blood neutrophils/100 leukocytes 57 % 42-75 Automated blood lymphocytes/100 leukocytes 32 % 12-44 Blood monocytes/100 leukocytes 10 % 0-12 Automated blood eosinophils/100 leukocytes 1 % 0-10 Automated blood basophils/100 leukocytes 1 % 0-10 Blood neutrophils automated count (number/volume) 3.8 10*3 1.8-7.8 Blood lymphocytes automated count (number/volume) 2.1 10*3 1.0-4.0 Blood monocytes automated count (number/volume) 0. 7 10*3 0.0-1.0 Automated eosinophil count 0.1 10*3/uL 0 .0-0.3 Automated blood basophil count (count/volume) 0.0 10*3/uL 0.0-0.1 Serum or plasma choriogonadotropin (preg koby test) detection - 03/13/17 05:30 Serum or plasma choriogonadotropin ( test) de tection NEGATIVE NEGATIVE Comprehensive metabolic panel - 03/13/17 05:30 Serum or plasma sodium measurement (moles/volume) 142 mmol/L 135-145 Serum or plasma potassium measurement (moles/volume) 3.5 mmol/L 3.6-5.0 Serum or plasma chloride measurement (moles/volume) 114 mmol/L 98-107 Carbon dioxide 18 mmol/L 21-32 Serum or plasma anion gap determination (moles/volume) 10 mmol/L 5-14 Serum or plasma urea nitrogen measurement (mass/volume ) 7 mg/dL 7-18 Serum or plasma creatinine measurement (mass/volume) 0.79 mg/dL 0.60-1.30 Serum or plasma urea nitrogen/creatinine mass ratio 9 NRG Serum or plasma creatinine measurement w ith calculation of estimated glomerular filtration rate > NRG Serum or plasma glucose measurement (mass/volume) 103 mg/dL 70-105 Serum or plasma calcium measurement (mass/volume) 9.7 mg/dL 8.5-10.1 Serum or plasma total bilirubin measurement (mass/volu me) 0.3 mg/dL 0.1-1.0 Serum or plasma alkaline phosphatase kodak surement (enzymatic activity/volume) 93 U/L 60-350 Serum or plasma aspartate aminotransfera se measurement (enzymatic activity/volume) 18 U/L 5-34 Serum or plasma alanine aminotransferase measurement (enzymatic activity/volume) 28 U/L 0-55 Serum or plasma protein measurement (mass/volume) 7.7 g/dL 6.4-8.2 Serum or plasma albumin measurement (mass/volume) 4.2 g/dL 3.2-4.5 Magnesium - 03/13/17 05:30 Magnesium 2.0 mg/dL 1.8-2.4 Serum or plasma creatine kinase measurem ent (enzymatic activity/volume) - 03/13/17 05:30 Serum or plasma creatine kinase measurem ent (enzymatic activity/volume) 73 U/L 29-168 Serum or plasma creatine kinase MB measu rement (enzymatic activity/volume) - 03/13/17 05:30 Serum or plasma creatine kinase MB measu rement (enzymatic activity/volume) 0.3 ng/mL <6.6 Serum or plasma thyrotropin measurement by detection limit <=0.05 miu/l (units/volume) - 03/13/17 05:30 Serum or plasma thyrotropin measurement by detection limit <=0.05 miu/l (units/volume) 1.80 u[iU]/mL 0.35-4.94 Serum or plasma acetaminophen measuremen t (mass/volume) - 03/13/17 05:30 Serum or plasma acetaminophen measurement (mass/volume ) < ug/mL 10-30 Serum or plasma ethanol measurement (mas s/volume) - 03/13/17 05:30 Serum or plasma ethanol measurement (mass/volume) < mg/dL <10 Complete urinalysis with reflex to cultu re - 03/13/17 05:40 Urine color determination YELLOW NRG Urine clarity determination VERY CLOUDY NRG Urine pH measurement by test strip 8 5-9 Specific gravity of urine by test strip 1.015 1.016-1.022 Urine protein assay by test strip, semi-quantitative NEGATIVE NEGATIVE Urine glucose detection by automated test strip NE GATIVE NEGATIVE Erythrocytes detection in urine sediment by light micr oscopy 3+ NEGATIVE Urine ketones detection by automated test strip NE GATIVE NEGATIVE Urine nitrite detection by test strip NEGATIVE NEGATIVE Urine total bilirubin detection by test strip NEGA TIVE NEGATIVE Urine urobilinogen measurement by automated test strip (mass/volume) NORMAL NORMAL Urine leukocyte esterase detection by dipstick 1+ NEGATIVE Automated urine sediment erythrocyte cou nt by microscopy (number/high power field) RARE NRG Automated urine sediment leukocyte count by microscopy (number/high power field) RARE NRG Bacteria detection in urine sediment by light microsco py TRACE NRG Squamous epithelial cells detection in u rine sediment by light microscopy 2-5 NRG Crystals detection in urine sediment by light microsco py PRESENT NRG Casts detection in urine sediment by light microscopy PRESENT NRG Mucus detection in urine sediment by light microscopy NEGATIVE NRG Complete urinalysis with reflex to culture NO NRG Amorphous sediment detection in urine sediment by ligh t microscopy LARGE CECILIO PHOSPHATE NRG Granular casts detection in urine sediment by light mi croscopy 2-5 NRG Urine drug screening test - 03/13/17 05: 40 Urine phencyclidine detection by screening method NEGATIVE NEGATIVE Urine benzodiazepines detection by screening method NEGATIVE NEGATIVE Urine cocaine detection NEGATIVE NEGATI VE Urine amphetamines detection by screening method N EGATIVE NEGATIVE Urine methamphetamine detection by screening method NEGATIVE NEGATIVE Urine cannabinoids detection by screening method N EGATIVE NEGATIVE Urine opiates detection by screening method NEGATI VE NEGATIVE Urine barbiturates detection NEGATIVE N EGATIVE Screening urine tricyclic antidepressants detection NEGATIVE NEGATIVE Urine methadone detection by screening method NEGA TIVE NEGATIVE Urine oxycodone detection NEGATIVE NEGA TIVE Urine propoxyphene detection NEGATIVE N EGATIVE Complete blood count (CBC) with automate d white blood cell (WBC) differential - 05/23/17 23:50 Blood leukocytes automated count (number/volume) 7.2 10*3/uL 4.3-11.0 Blood erythrocytes automated count (number/volume) 4.28 10*6/uL 4.35-5.85 Venous blood hemoglobin measurement (mass/volume) 12.5 g/dL 11.5-16.0 Blood hematocrit (volume fraction) 36 % 35-52 Automated erythrocyte mean corpuscular volume 85 [ foz_us] 80-99 Automated erythrocyte mean corpuscular h emoglobin (mass per erythrocyte) 29 pg 25-34 Automated erythrocyte mean corpuscular h emoglobin concentration measurement (mass/volume) 34 g/dL 32-36 Automated erythrocyte distribution width ratio 13. 1 % 10.0- 14.5 Automated blood platelet count (count/volume) 352 10*3/uL 130-400 Automated blood platelet mean volume measurement 8.8 [foz_us] 7.4-10.4 Automated blood neutrophils/100 leukocytes 41 % 42-75 Automated blood lymphocytes/100 leukocytes 48 % 12-44 Blood monocytes/100 leukocytes 9 % 0-12 Automated blood eosinophils/100 leukocytes 1 % 0-10 Automated blood basophils/100 leukocytes 1 % 0-10 Blood neutrophils automated count (number/volume) 3.0 10*3 1.8-7.8 Blood lymphocytes automated count (number/volume) 3.4 10*3 1.0-4.0 Blood monocytes automated count (number/volume) 0. 7 10*3 0.0-1.0 Automated eosinophil count 0.1 10*3/uL 0 .0-0.3 Automated blood basophil count (count/volume) 0.0 10*3/uL 0.0-0.1 Comprehensive metabolic panel - 05/23/17 23:50 Serum or plasma sodium measurement (moles/volume) 141 mmol/L 135-145 Serum or plasma potassium measurement (moles/volume) 3.8 mmol/L 3.6-5.0 Serum or plasma chloride measurement (moles/volume) 107 mmol/L 98-107 Carbon dioxide 21 mmol/L 21-32 Serum or plasma anion gap determination (moles/volume) 13 mmol/L 5-14 Serum or plasma urea nitrogen measurement (mass/volume ) 9 mg/dL 7-18 Serum or plasma creatinine measurement (mass/volume) 0.85 mg/dL 0.60-1.30 Serum or plasma urea nitrogen/creatinine mass ratio 11 NRG Serum or plasma creatinine measurement w ith calculation of estimated glomerular filtration rate > NRG Serum or plasma glucose measurement (mass/volume) 95 mg/dL 70-105 Serum or plasma calcium measurement (mass/volume) 9.6 mg/dL 8.5-10.1 Serum or plasma total bilirubin measurement (mass/volu me) 0.3 mg/dL 0.1-1.0 Serum or plasma alkaline phosphatase kodak surement (enzymatic activity/volume) 77 U/L 60-350 Serum or plasma aspartate aminotransfera se measurement (enzymatic activity/volume) 18 U/L 5-34 Serum or plasma alanine aminotransferase measurement (enzymatic activity/volume) 21 U/L 0-55 Serum or plasma protein measurement (mass/volume) 8.1 g/dL 6.4-8.2 Serum or plasma albumin measurement (mass/volume) 4.4 g/dL 3.2-4.5 Magnesium - 05/23/17 23:50 Magnesium 2.4 mg/dL 1.8-2.4 THYROID STIMULATING HORMONE - 05/23/17 2 3:50 THYROID STIMULATING HORMONE 2.64 u[iU]/mL 0.35-4.94 Complete blood count (CBC) with automate d white blood cell (WBC) differential - 06/07/17 22:05 Blood leukocytes automated count (number/volume) 6.5 10*3/uL 4.3-11.0 Blood erythrocytes automated count (number/volume) 4.35 10*6/uL 4.35-5.85 Venous blood hemoglobin measurement (mass/volume) 12.7 g/dL 11.5-16.0 Blood hematocrit (volume fraction) 37 % 35-52 Automated erythrocyte mean corpuscular volume 86 [ foz_us] 80-99 Automated erythrocyte mean corpuscular h emoglobin (mass per erythrocyte) 29 pg 25-34 Automated erythrocyte mean corpuscular h emoglobin concentration measurement (mass/volume) 34 g/dL 32-36 Automated erythrocyte distribution width ratio 12. 5 % 10.0- 14.5 Automated blood platelet count (count/volume) 331 10*3/uL 130-400 Automated blood platelet mean volume measurement 9.9 [foz_us] 7.4-10.4 Automated blood neutrophils/100 leukocytes 39 % 42-75 Automated blood lymphocytes/100 leukocytes 50 % 12-44 Blood monocytes/100 leukocytes 10 % 0-12 Automated blood eosinophils/100 leukocytes 1 % 0-10 Automated blood basophils/100 leukocytes 0 % 0-10 Blood neutrophils automated count (number/volume) 2.5 10*3 1.8-7.8 Blood lymphocytes automated count (number/volume) 3.2 10*3 1.0-4.0 Blood monocytes automated count (number/volume) 0. 6 10*3 0.0-1.0 Automated eosinophil count 0.1 10*3/uL 0 .0-0.3 Automated blood basophil count (count/volume) 0.0 10*3/uL 0.0-0.1 Serum or plasma choriogonadotropin (preg koby test) detection - 06/07/17 22:05 Serum or plasma choriogonadotropin ( test) de tection NEGATIVE NEGATIVE Comprehensive metabolic panel - 06/07/17 22:05 Serum or plasma sodium measurement (moles/volume) 140 mmol/L 135-145 Serum or plasma potassium measurement (moles/volume) 3.5 mmol/L 3.6-5.0 Serum or plasma chloride measurement (moles/volume) 104 mmol/L 98-107 Carbon dioxide 23 mmol/L 21-32 Serum or plasma anion gap determination (moles/volume) 13 mmol/L 5-14 Serum or plasma urea nitrogen measurement (mass/volume ) 9 mg/dL 7-18 Serum or plasma creatinine measurement (mass/volume) 0.74 mg/dL 0.60-1.30 Serum or plasma urea nitrogen/creatinine mass ratio 12 NRG Serum or plasma creatinine measurement w ith calculation of estimated glomerular filtration rate > NRG Serum or plasma glucose measurement (mass/volume) 109 mg/dL 70-105 Serum or plasma calcium measurement (mass/volume) 9.6 mg/dL 8.5-10.1 Serum or plasma total bilirubin measurement (mass/volu me) 0.4 mg/dL 0.1-1.0 Serum or plasma alkaline phosphatase kodak surement (enzymatic activity/volume) 76 U/L 60-350 Serum or plasma aspartate aminotransfera se measurement (enzymatic activity/volume) 19 U/L 5-34 Serum or plasma alanine aminotransferase measurement (enzymatic activity/volume) 18 U/L 0-55 Serum or plasma protein measurement (mass/volume) 7.8 g/dL 6.4-8.2 Serum or plasma albumin measurement (mass/volume) 4.2 g/dL 3.2-4.5 Serum or plasma ethanol measurement (mas s/volume) - 06/07/17 22:05 Serum or plasma ethanol measurement (mass/volume) < mg/dL <10 Lamotrigine level - 06/07/17 22:05 Lamotrigine level < % 2.5-15.0 Complete urinalysis with reflex to cultu re - 06/08/17 00:03 Urine color determination YELLOW NRG Urine clarity determination CLEAR NR G Urine pH measurement by test strip 8 5-9 Specific gravity of urine by test strip 1.010 1.016-1.022 Urine protein assay by test strip, semi-quantitative NEGATIVE NEGATIVE Urine glucose detection by automated test strip NE GATIVE NEGATIVE Erythrocytes detection in urine sediment by light micr oscopy NEGATIVE NEGATIVE Urine ketones detection by automated test strip NE GATIVE NEGATIVE Urine nitrite detection by test strip NEGATIVE NEGATIVE Urine total bilirubin detection by test strip NEGA TIVE NEGATIVE Urine urobilinogen measurement by automated test strip (mass/volume) NORMAL NORMAL Urine leukocyte esterase detection by dipstick NEG ATIVE NEGATIVE Automated urine sediment erythrocyte cou nt by microscopy (number/high power field) NONE NRG Automated urine sediment leukocyte count by microscopy (number/high power field) NONE NRG Bacteria detection in urine sediment by light microsco py FEW NRG Squamous epithelial cells detection in u rine sediment by light microscopy >50 NRG Crystals detection in urine sediment by light microsco py NONE NRG Casts detection in urine sediment by light microscopy NONE NRG Mucus detection in urine sediment by light microscopy SMALL NRG Complete urinalysis with reflex to culture NO NRG Complete blood count (CBC) with automate d white blood cell (WBC) differential - 07/11/17 05:05 Blood leukocytes automated count (number/volume) 8.3 10*3/uL 4.3-11.0 Blood erythrocytes automated count (number/volume) 4.44 10*6/uL 4.35-5.85 Venous blood hemoglobin measurement (mass/volume) 12.6 g/dL 11.5-16.0 Blood hematocrit (volume fraction) 38 % 35-52 Automated erythrocyte mean corpuscular volume 85 [ foz_us] 80-99 Automated erythrocyte mean corpuscular h emoglobin (mass per erythrocyte) 28 pg 25-34 Automated erythrocyte mean corpuscular h emoglobin concentration measurement (mass/volume) 33 g/dL 32-36 Automated erythrocyte distribution width ratio 12. 2 % 10.0- 14.5 Automated blood platelet count (count/volume) 322 10*3/uL 130-400 Automated blood platelet mean volume measurement 9.3 [foz_us] 7.4-10.4 Automated blood neutrophils/100 leukocytes 66 % 42-75 Automated blood lymphocytes/100 leukocytes 25 % 12-44 Blood monocytes/100 leukocytes 8 % 0-12 Automated blood eosinophils/100 leukocytes 1 % 0-10 Automated blood basophils/100 leukocytes 0 % 0-10 Blood neutrophils automated count (number/volume) 5.5 10*3 1.8-7.8 Blood lymphocytes automated count (number/volume) 2.1 10*3 1.0-4.0 Blood monocytes automated count (number/volume) 0. 7 10*3 0.0-1.0 Automated eosinophil count 0.1 10*3/uL 0 .0-0.3 Automated blood basophil count (count/volume) 0.0 10*3/uL 0.0-0.1 Comprehensive metabolic panel - 07/11/17 05:05 Serum or plasma sodium measurement (moles/volume) 139 mmol/L 135-145 Serum or plasma potassium measurement (moles/volume) 3.7 mmol/L 3.6-5.0 Serum or plasma chloride measurement (moles/volume) 107 mmol/L 98-107 Carbon dioxide 22 mmol/L 21-32 Serum or plasma anion gap determination (moles/volume) 10 mmol/L 5-14 Serum or plasma urea nitrogen measurement (mass/volume ) 8 mg/dL 7-18 Serum or plasma creatinine measurement (mass/volume) 0.82 mg/dL 0.60-1.30 Serum or plasma urea nitrogen/creatinine mass ratio 10 NRG Serum or plasma creatinine measurement w ith calculation of estimated glomerular filtration rate > NRG Serum or plasma glucose measurement (mass/volume) 97 mg/dL 70-105 Serum or plasma calcium measurement (mass/volume) 9.3 mg/dL 8.5-10.1 Serum or plasma total bilirubin measurement (mass/volu me) 0.4 mg/dL 0.1-1.0 Serum or plasma alkaline phosphatase kodak surement (enzymatic activity/volume) 74 U/L 40-136 Serum or plasma aspartate aminotransfera se measurement (enzymatic activity/volume) 17 U/L 5-34 Serum or plasma alanine aminotransferase measurement (enzymatic activity/volume) 19 U/L 0-55 Serum or plasma protein measurement (mass/volume) 7.7 g/dL 6.4-8.2 Serum or plasma albumin measurement (mass/volume) 4.4 g/dL 3.2-4.5 Magnesium - 07/11/17 05:05 Magnesium 2.1 mg/dL 1.8-2.4 Lipase - 07/11/17 05:05 Lipase 25 U/L 8-78 Complete urinalysis with reflex to cultu re - 08/18/17 21:52 Urine color determination YELLOW NRG Urine clarity determination CLEAR NR G Urine pH measurement by test strip 8 5-9 Specific gravity of urine by test strip 1.010 1.016-1.022 Urine protein assay by test strip, semi-quantitative NEGATIVE NEGATIVE Urine glucose detection by automated test strip NE GATIVE NEGATIVE Erythrocytes detection in urine sediment by light micr oscopy NEGATIVE NEGATIVE Urine ketones detection by automated test strip NE GATIVE NEGATIVE Urine nitrite detection by test strip NEGATIVE NEGATIVE Urine total bilirubin detection by test strip NEGA TIVE NEGATIVE Urine urobilinogen measurement by automated test strip (mass/volume) NORMAL NORMAL Urine leukocyte esterase detection by dipstick NEG ATIVE NEGATIVE Automated urine sediment erythrocyte cou nt by microscopy (number/high power field) NONE NRG Automated urine sediment leukocyte count by microscopy (number/high power field) NONE NRG Bacteria detection in urine sediment by light microsco py NONE NRG Squamous epithelial cells detection in u rine sediment by light microscopy 5-10 NRG Crystals detection in urine sediment by light microsco py PRESENT NRG Casts detection in urine sediment by light microscopy NONE NRG Mucus detection in urine sediment by light microscopy NEGATIVE NRG Complete urinalysis with reflex to culture NO NRG Amorphous sediment detection in urine sediment by ligh t microscopy FEW CECILIO PHOSPHATE NRG Complete blood count (CBC) with automate d white blood cell (WBC) differential - 08/18/17 22:07 Blood leukocytes automated count (number/volume) 6.6 10*3/uL 4.3-11.0 Blood erythrocytes automated count (number/volume) 4.36 10*6/uL 4.35-5.85 Venous blood hemoglobin measurement (mass/volume) 12.7 g/dL 11.5-16.0 Blood hematocrit (volume fraction) 37 % 35-52 Automated erythrocyte mean corpuscular volume 86 [ foz_us] 80-99 Automated erythrocyte mean corpuscular h emoglobin (mass per erythrocyte) 29 pg 25-34 Automated erythrocyte mean corpuscular h emoglobin concentration measurement (mass/volume) 34 g/dL 32-36 Automated erythrocyte distribution width ratio 12. 7 % 10.0- 14.5 Automated blood platelet count (count/volume) 317 10*3/uL 130-400 Automated blood platelet mean volume measurement 8.8 [foz_us] 7.4-10.4 Automated blood neutrophils/100 leukocytes 49 % 42-75 Automated blood lymphocytes/100 leukocytes 39 % 12-44 Blood monocytes/100 leukocytes 11 % 0-12 Automated blood eosinophils/100 leukocytes 1 % 0-10 Automated blood basophils/100 leukocytes 1 % 0-10 Blood neutrophils automated count (number/volume) 3.2 10*3 1.8-7.8 Blood lymphocytes automated count (number/volume) 2.6 10*3 1.0-4.0 Blood monocytes automated count (number/volume) 0. 7 10*3 0.0-1.0 Automated eosinophil count 0.1 10*3/uL 0 .0-0.3 Automated blood basophil count (count/volume) 0.0 10*3/uL 0.0-0.1 Serum or plasma choriogonadotropin (preg koby test) detection - 08/18/17 22:07 Serum or plasma choriogonadotropin ( test) de tection NEGATIVE NEGATIVE Whole blood basic metabolic panel - 07/30 05/17 22:07 Serum or plasma sodium measurement (moles/volume) 139 mmol/L 135-145 Serum or plasma potassium measurement (moles/volume) 3.7 mmol/L 3.6-5.0 Serum or plasma chloride measurement (moles/volume) 107 mmol/L 98-107 Carbon dioxide 23 mmol/L 21-32 Serum or plasma anion gap determination (moles/volume) 9 mmol/L 5-14 Serum or plasma urea nitrogen measurement (mass/volume ) 9 mg/dL 7-18 Serum or plasma creatinine measurement (mass/volume) 0.85 mg/dL 0.60-1.30 Serum or plasma urea nitrogen/creatinine mass ratio 11 NRG Serum or plasma creatinine measurement w ith calculation of estimated glomerular filtration rate > NRG Serum or plasma glucose measurement (mass/volume) 87 mg/dL 70-105 Serum or plasma calcium measurement (mass/volume) 9.5 mg/dL 8.5-10.1 Magnesium - 08/18/17 22:07 Magnesium 2.3 mg/dL 1.8-2.4 Complete blood count (CBC) with automate d white blood cell (WBC) differential - 02/25/18 21:15 Blood leukocytes automated count (number/volume) 8.5 10*3/uL 4.3-11.0 Blood erythrocytes automated count (number/volume) 4.67 10*6/uL 4.35-5.85 Venous blood hemoglobin measurement (mass/volume) 13.6 g/dL 11.5-16.0 Blood hematocrit (volume fraction) 41 % 35-52 Automated erythrocyte mean corpuscular volume 87 [ foz_us] 80-99 Automated erythrocyte mean corpuscular h emoglobin (mass per erythrocyte) 29 pg 25-34 Automated erythrocyte mean corpuscular h emoglobin concentration measurement (mass/volume) 33 g/dL 32-36 Automated erythrocyte distribution width ratio 12. 2 % 10.0- 14.5 Automated blood platelet count (count/volume) 306 10*3/uL 130-400 Automated blood platelet mean volume measurement 9.1 [foz_us] 7.4-10.4 Automated blood neutrophils/100 leukocytes 56 % 42-75 Automated blood lymphocytes/100 leukocytes 35 % 12-44 Blood monocytes/100 leukocytes 9 % 0-12 Automated blood eosinophils/100 leukocytes 1 % 0-10 Automated blood basophils/100 leukocytes 0 % 0-10 Blood neutrophils automated count (number/volume) 4.7 10*3 1.8-7.8 Blood lymphocytes automated count (number/volume) 2.9 10*3 1.0-4.0 Blood monocytes automated count (number/volume) 0. 8 10*3 0.0-1.0 Automated eosinophil count 0.1 10*3/uL 0 .0-0.3 Automated blood basophil count (count/volume) 0.0 10*3/uL 0.0-0.1 Comprehensive metabolic panel - 02/25/18 21:15 Serum or plasma sodium measurement (moles/volume) 137 mmol/L 135-145 Serum or plasma potassium measurement (moles/volume) 3.7 mmol/L 3.6-5.0 Serum or plasma chloride measurement (moles/volume) 102 mmol/L 98-107 Carbon dioxide 23 mmol/L 21-32 Serum or plasma anion gap determination (moles/volume) 12 mmol/L 5-14 Serum or plasma urea nitrogen measurement (mass/volume ) 10 mg/dL 7-18 Serum or plasma creatinine measurement (mass/volume) 0.82 mg/dL 0.60-1.30 Serum or plasma urea nitrogen/creatinine mass ratio 12 NRG Serum or plasma creatinine measurement w ith calculation of estimated glomerular filtration rate > NRG Serum or plasma glucose measurement (mass/volume) 106 mg/dL 70-105 Serum or plasma calcium measurement (mass/volume) 9.9 mg/dL 8.5-10.1 Serum or plasma total bilirubin measurement (mass/volu me) 0.3 mg/dL 0.1-1.0 Serum or plasma alkaline phosphatase kodak surement (enzymatic activity/volume) 88 U/L 40-136 Serum or plasma aspartate aminotransfera se measurement (enzymatic activity/volume) 20 U/L 5-34 Serum or plasma alanine aminotransferase measurement (enzymatic activity/volume) 20 U/L 0-55 Serum or plasma protein measurement (mass/volume) 8.5 g/dL 6.4-8.2 Serum or plasma albumin measurement (mass/volume) 4.4 g/dL 3.2-4.5 CALCIUM CORRECTED 9.6 mg/dL 8.5-10.1 Complete urinalysis with reflex to cultu re - 02/25/18 21:30 Urine color determination YELLOW NRG Urine clarity determination CLEAR NR G Urine pH measurement by test strip 7 5-9 Specific gravity of urine by test strip 1.005 1.016-1.022 Urine protein assay by test strip, semi-quantitative NEGATIVE NEGATIVE Urine glucose detection by automated test strip NE GATIVE NEGATIVE Erythrocytes detection in urine sediment by light micr oscopy NEGATIVE NEGATIVE Urine ketones detection by automated test strip NE GATIVE NEGATIVE Urine nitrite detection by test strip NEGATIVE NEGATIVE Urine total bilirubin detection by test strip NEGA TIVE NEGATIVE Urine urobilinogen measurement by automated test strip (mass/volume) NORMAL NORMAL Urine leukocyte esterase detection by dipstick NEG ATIVE NEGATIVE Automated urine sediment erythrocyte cou nt by microscopy (number/high power field) [HPF] NRG Automated urine sediment leukocyte count by microscopy (number/high power field) [HPF] NRG Bacteria detection in urine sediment by light microsco py MODERATE NRG Squamous epithelial cells detection in u rine sediment by light microscopy 5-10 NRG Crystals detection in urine sediment by light microsco py NONE NRG Casts detection in urine sediment by light microscopy NONE NRG Mucus detection in urine sediment by light microscopy NEGATIVE NRG Complete urinalysis with reflex to culture NO NRG Complete urinalysis with reflex to cultu re - 03/27/18 17:14 Urine color determination YELLOW NRG Urine clarity determination CLEAR NR G Urine pH measurement by test strip 7 5-9 Specific gravity of urine by test strip 1.010 1.016-1.022 Urine protein assay by test strip, semi-quantitative NEGATIVE NEGATIVE Urine glucose detection by automated test strip NE GATIVE NEGATIVE Erythrocytes detection in urine sediment by light micr oscopy NEGATIVE NEGATIVE Urine ketones detection by automated test strip NE GATIVE NEGATIVE Urine nitrite detection by test strip NEGATIVE NEGATIVE Urine total bilirubin detection by test strip NEGA TIVE NEGATIVE Urine urobilinogen measurement by automated test strip (mass/volume) 1 mg/dL NORMAL Urine leukocyte esterase detection by dipstick NEG ATIVE NEGATIVE Automated urine sediment erythrocyte cou nt by microscopy (number/high power field) NONE NRG Automated urine sediment leukocyte count by microscopy (number/high power field) [HPF] NRG Bacteria detection in urine sediment by light microsco py TRACE NRG Squamous epithelial cells detection in u rine sediment by light microscopy 0-2 NRG Crystals detection in urine sediment by light microsco py NONE NRG Casts detection in urine sediment by light microscopy NONE NRG Mucus detection in urine sediment by light microscopy NEGATIVE NRG Complete urinalysis with reflex to culture NO NRG Urine drug screening test - 03/27/18 17: 14 Urine phencyclidine detection by screening method NEGATIVE NEGATIVE Urine benzodiazepines detection by screening method NEGATIVE NEGATIVE Urine cocaine detection NEGATIVE NEGATI VE Urine amphetamines detection by screening method N EGATIVE NEGATIVE Urine methamphetamine detection by screening method NEGATIVE NEGATIVE Urine cannabinoids detection by screening method N EGATIVE NEGATIVE Urine opiates detection by screening method NEGATI VE NEGATIVE Urine barbiturates detection NEGATIVE N EGATIVE Screening urine tricyclic antidepressants detection NEGATIVE NEGATIVE Urine methadone detection by screening method NEGA TIVE NEGATIVE Urine oxycodone detection NEGATIVE NEGA TIVE Urine propoxyphene detection NEGATIVE N EGATIVE Complete blood count (CBC) with automate d white blood cell (WBC) differential - 03/28/18 17:55 Blood leukocytes automated count (number/volume) 5.7 10*3/uL 4.3-11.0 Blood erythrocytes automated count (number/volume) 4.36 10*6/uL 4.35-5.85 Venous blood hemoglobin measurement (mass/volume) 12.7 g/dL 11.5-16.0 Blood hematocrit (volume fraction) 38 % 35-52 Automated erythrocyte mean corpuscular volume 86 [ foz_us] 80-99 Automated erythrocyte mean corpuscular h emoglobin (mass per erythrocyte) 29 pg 25-34 Automated erythrocyte mean corpuscular h emoglobin concentration measurement (mass/volume) 34 g/dL 32-36 Automated erythrocyte distribution width ratio 12. 0 % 10.0- 14.5 Automated blood platelet count (count/volume) 313 10*3/uL 130-400 Automated blood platelet mean volume measurement 8.9 [foz_us] 7.4-10.4 Automated blood neutrophils/100 leukocytes 46 % 42-75 Automated blood lymphocytes/100 leukocytes 44 % 12-44 Blood monocytes/100 leukocytes 8 % 0-12 Automated blood eosinophils/100 leukocytes 1 % 0-10 Automated blood basophils/100 leukocytes 1 % 0-10 Blood neutrophils automated count (number/volume) 2.6 10*3 1.8-7.8 Blood lymphocytes automated count (number/volume) 2.5 10*3 1.0-4.0 Blood monocytes automated count (number/volume) 0. 5 10*3 0.0-1.0 Automated eosinophil count 0.1 10*3/uL 0 .0-0.3 Automated blood basophil count (count/volume) 0.0 10*3/uL 0.0-0.1 Blood blood smear finding identification by light micr oscopy NRG Serum or plasma choriogonadotropin (preg koby test) detection - 03/28/18 17:55 Serum or plasma choriogonadotropin ( test) de tection NEGATIVE NEGATIVE Comprehensive metabolic panel - 03/28/18 17:55 Serum or plasma sodium measurement (moles/volume) 141 mmol/L 135-145 Serum or plasma potassium measurement (moles/volume) 3.8 mmol/L 3.6-5.0 Serum or plasma chloride measurement (moles/volume) 105 mmol/L 98-107 Carbon dioxide 24 mmol/L 21-32 Serum or plasma anion gap determination (moles/volume) 12 mmol/L 5-14 Serum or plasma urea nitrogen measurement (mass/volume ) 9 mg/dL 7-18 Serum or plasma creatinine measurement (mass/volume) 0.77 mg/dL 0.60-1.30 Serum or plasma urea nitrogen/creatinine mass ratio 12 NRG Serum or plasma creatinine measurement w ith calculation of estimated glomerular filtration rate > NRG Serum or plasma glucose measurement (mass/volume) 88 mg/dL 70-105 Serum or plasma calcium measurement (mass/volume) 9.6 mg/dL 8.5-10.1 Serum or plasma total bilirubin measurement (mass/volu me) 0.5 mg/dL 0.1-1.0 Serum or plasma alkaline phosphatase kodak surement (enzymatic activity/volume) 105 U/L 40-136 Serum or plasma aspartate aminotransfera se measurement (enzymatic activity/volume) 26 U/L 5-34 Serum or plasma alanine aminotransferase measurement (enzymatic activity/volume) 45 U/L 0-55 Serum or plasma protein measurement (mass/volume) 7.8 g/dL 6.4-8.2 Serum or plasma albumin measurement (mass/volume) 4.3 g/dL 3.2-4.5 CALCIUM CORRECTED 9.4 mg/dL 8.5-10.1 Lipase - 03/28/18 17:55 Lipase 39 U/L 8-78 Serum or plasma C reactive protein measu rement (mass/volume) - 03/28/18 17:55 Serum or plasma C reactive protein measurement (mass/v olume) 0.43 mg/dL 0.00-0.50 Complete blood count (CBC) with automate d white blood cell (WBC) differential - 05/21/18 22:35 Blood leukocytes automated count (number/volume) 9.8 10*3/uL 4.3-11.0 Blood erythrocytes automated count (number/volume) 4.27 10*6/uL 4.35-5.85 Venous blood hemoglobin measurement (mass/volume) 12.4 g/dL 11.5-16.0 Blood hematocrit (volume fraction) 37 % 35-52 Automated erythrocyte mean corpuscular volume 86 [ foz_us] 80-99 Automated erythrocyte mean corpuscular h emoglobin (mass per erythrocyte) 29 pg 25-34 Automated erythrocyte mean corpuscular h emoglobin concentration measurement (mass/volume) 34 g/dL 32-36 Automated erythrocyte distribution width ratio 12. 2 % 10.0- 14.5 Automated blood platelet count (count/volume) 414 10*3/uL 130-400 Automated blood platelet mean volume measurement 8.4 [foz_us] 7.4-10.4 Automated blood neutrophils/100 leukocytes 54 % 42-75 Automated blood lymphocytes/100 leukocytes 34 % 12-44 Blood monocytes/100 leukocytes 11 % 0-12 Automated blood eosinophils/100 leukocytes 1 % 0-10 Automated blood basophils/100 leukocytes 0 % 0-10 Blood neutrophils automated count (number/volume) 5.4 10*3 1.8-7.8 Blood lymphocytes automated count (number/volume) 3.3 10*3 1.0-4.0 Blood monocytes automated count (number/volume) 1. 0 10*3 0.0-1.0 Automated eosinophil count 0.1 10*3/uL 0 .0-0.3 Automated blood basophil count (count/volume) 0.0 10*3/uL 0.0-0.1 Serum heterophile antibody titer - 05/21 22:35 Serum heterophile antibody titer NEGATIVE NEGATIVE Serum or plasma choriogonadotropin (preg koby test) detection - 05/21/18 22:35 Serum or plasma choriogonadotropin ( test) de tection NEGATIVE NEGATIVE Comprehensive metabolic panel - 05/21/18 22:35 Serum or plasma sodium measurement (moles/volume) 140 mmol/L 135-145 Serum or plasma potassium measurement (moles/volume) 3.8 mmol/L 3.6-5.0 Serum or plasma chloride measurement (moles/volume) 105 mmol/L 98-107 Carbon dioxide 25 mmol/L 21-32 Serum or plasma anion gap determination (moles/volume) 10 mmol/L 5-14 Serum or plasma urea nitrogen measurement (mass/volume ) 8 mg/dL 7-18 Serum or plasma creatinine measurement (mass/volume) 0.69 mg/dL 0.60-1.30 Serum or plasma urea nitrogen/creatinine mass ratio 12 NRG Serum or plasma creatinine measurement w ith calculation of estimated glomerular filtration rate > NRG Serum or plasma glucose measurement (mass/volume) 83 mg/dL 70-105 Serum or plasma calcium measurement (mass/volume) 9.7 mg/dL 8.5-10.1 Serum or plasma total bilirubin measurement (mass/volu me) 0.2 mg/dL 0.1-1.0 Serum or plasma alkaline phosphatase kodak surement (enzymatic activity/volume) 102 U/L 40-136 Serum or plasma aspartate aminotransfera se measurement (enzymatic activity/volume) 25 U/L 5-34 Serum or plasma alanine aminotransferase measurement (enzymatic activity/volume) 48 U/L 0-55 Serum or plasma protein measurement (mass/volume) 8.1 g/dL 6.4-8.2 Serum or plasma albumin measurement (mass/volume) 4.1 g/dL 3.2-4.5 CALCIUM CORRECTED 9.6 mg/dL 8.5-10.1 Magnesium - 05/21/18 22:35 Magnesium 2.2 mg/dL 1.8-2.4 Serum or plasma creatine kinase measurem ent (enzymatic activity/volume) - 05/21/18 22:35 Serum or plasma creatine kinase measurem ent (enzymatic activity/volume) 89 U/L 29-168 Serum or plasma creatine kinase MB measu rement (enzymatic activity/volume) - 05/21/18 22:35 Serum or plasma creatine kinase MB measu rement (enzymatic activity/volume) 0.4 ng/mL <6.6 Myoglobin, serum - 05/21/18 22:35 Myoglobin, serum 15.7 ng/mL 10.0-92.0 Serum or plasma thyrotropin measurement by detection limit <=0.05 miu/l (units/volume) - 05/21/18 22:35 Serum or plasma thyrotropin measurement by detection limit <=0.05 miu/l (units/volume) 1.52 u[iU]/mL 0.35-4.94 Serum or plasma acetaminophen measuremen t (mass/volume) - 05/21/18 22:35 Serum or plasma acetaminophen measurement (mass/volume ) < ug/mL 10-30 Serum or plasma ethanol measurement (mas s/volume) - 05/21/18 22:35 Serum or plasma ethanol measurement (mass/volume) < mg/dL <10 Influenza virus A and B antigen detectio n - 05/21/18 22:57 FLU RESULT NEGATIVE FOR INFLUENZA A AND B ANTIGENS BY IA [facility] Streptococcus pyogenes antigen detection - 05/21/18 22:57 Streptococcus pyogenes antigen detection NEGATIVE NEGATIVE Bacterial throat culture - 05/21/18 22:5 7 Bacterial throat culture NBS [facility] Bacterial blood culture - 05/21/18 22:57 Bacterial blood culture [facility] Complete urinalysis with reflex to cultu re - 05/21/18 23:09 Urine color determination YELLOW [facility] Urine clarity determination SLIGHTLY CLOUDY [facility] Urine pH measurement by test strip 7 5-9 Specific gravity of urine by test strip 1.015 1.016-1.022 Urine protein assay by test strip, semi-quantitative NEGATIVE NEGATIVE Urine glucose detection by automated test strip NE GATIVE NEGATIVE Erythrocytes detection in urine sediment by light micr oscopy 1+ NEGATIVE Urine ketones detection by automated test strip 1+ NEGATIVE Urine nitrite detection by test strip NEGATIVE NEGATIVE Urine total bilirubin detection by test strip NEGA TIVE NEGATIVE Urine urobilinogen measurement by automated test strip (mass/volume) NORMAL NORMAL Urine leukocyte esterase detection by dipstick 1+ NEGATIVE Automated urine sediment erythrocyte cou nt by microscopy (number/high power field) RARE NRG Automated urine sediment leukocyte count by microscopy (number/high power field) RARE NRG Bacteria detection in urine sediment by light microsco py MODERATE NRG Squamous epithelial cells detection in u rine sediment by light microscopy 10-25 NRG Crystals detection in urine sediment by light microsco py NONE NRG Casts detection in urine sediment by light microscopy NONE NRG Mucus detection in urine sediment by light microscopy NEGATIVE NRG Complete urinalysis with reflex to culture YES NRG Urine drug screening test - 05/21/18 23: 09 Urine phencyclidine detection by screening method NEGATIVE NEGATIVE Urine benzodiazepines detection by screening method NEGATIVE NEGATIVE Urine cocaine detection NEGATIVE NEGATI VE Urine amphetamines detection by screening method N EGATIVE NEGATIVE Urine methamphetamine detection by screening method NEGATIVE NEGATIVE Urine cannabinoids detection by screening method N EGATIVE NEGATIVE Urine opiates detection by screening method NEGATI VE NEGATIVE Urine barbiturates detection NEGATIVE N EGATIVE Screening urine tricyclic antidepressants detection NEGATIVE NEGATIVE Urine methadone detection by screening method NEGA TIVE NEGATIVE Urine oxycodone detection NEGATIVE NEGA TIVE Urine propoxyphene detection NEGATIVE N EGATIVE Bacterial urine culture - 05/21/18 23:09 Bacterial urine culture SEE REPORT NRG COLONY COUNT . NRG Bacterial blood culture - 05/21/18 23:43 Bacterial blood culture NG NRG Complete blood count (CBC) with automate d white blood cell (WBC) differential - 10/09/19 21:55 Blood leukocytes automated count (number/volume) 8.9 10*3/uL 4.3-11.0 Blood erythrocytes automated count (number/volume) 4.48 10*6/uL 4.35-5.85 Venous blood hemoglobin measurement (mass/volume) 12.6 g/dL 11.5-16.0 Blood hematocrit (volume fraction) 37 % 35-52 Automated erythrocyte mean corpuscular volume 84 [ foz_us] 80-99 Automated erythrocyte mean corpuscular h emoglobin (mass per erythrocyte) 28 pg 25-34 Automated erythrocyte mean corpuscular h emoglobin concentration measurement (mass/volume) 34 g/dL 32-36 Automated erythrocyte distribution width ratio 13. 1 % 10.0- 14.5 Automated blood platelet count (count/volume) 379 10*3/uL 130-400 Automated blood platelet mean volume measurement 9.0 [foz_us] 7.4-10.4 Automated blood neutrophils/100 leukocytes 71 % 42-75 Automated blood lymphocytes/100 leukocytes 22 % 12-44 Blood monocytes/100 leukocytes 7 % 0-12 Automated blood eosinophils/100 leukocytes 1 % 0-10 Automated blood basophils/100 leukocytes 0 % 0-10 Blood neutrophils automated count (number/volume) 6.3 10*3 1.8-7.8 Blood lymphocytes automated count (number/volume) 1.9 10*3 1.0-4.0 Blood monocytes automated count (number/volume) 0. 6 10*3 0.0-1.0 Automated eosinophil count 0.0 10*3/uL 0 .0-0.3 Automated blood basophil count (count/volume) 0.0 10*3/uL 0.0-0.1 Serum or plasma choriogonadotropin (preg koby test) detection - 10/09/19 21:55 Serum or plasma choriogonadotropin ( test) de tection NEGATIVE NEGATIVE Comprehensive metabolic panel - 10/09/19 21:55 Serum or plasma sodium measurement (moles/volume) 138 mmol/L 135-145 Serum or plasma potassium measurement (moles/volume) 3.8 mmol/L 3.6-5.0 Serum or plasma chloride measurement (moles/volume) 104 mmol/L 98-107 Carbon dioxide 22 mmol/L 21-32 Serum or plasma anion gap determination (moles/volume) 12 mmol/L 5-14 Serum or plasma urea nitrogen measurement (mass/volume ) 10 mg/dL 7-18 Serum or plasma creatinine measurement (mass/volume) 0.77 mg/dL 0.60-1.30 Serum or plasma urea nitrogen/creatinine mass ratio 13 NRG Serum or plasma creatinine measurement w ith calculation of estimated glomerular filtration rate > NRG Serum or plasma glucose measurement (mass/volume) 109 mg/dL 70-105 Serum or plasma calcium measurement (mass/volume) 9.5 mg/dL 8.5-10.1 Serum or plasma total bilirubin measurement (mass/volu me) 0.5 mg/dL 0.1-1.0 Serum or plasma alkaline phosphatase kodak surement (enzymatic activity/volume) 117 U/L 40-136 Serum or plasma aspartate aminotransfera se measurement (enzymatic activity/volume) 38 U/L 5-34 Serum or plasma alanine aminotransferase measurement (enzymatic activity/volume) 30 U/L 0-55 Serum or plasma protein measurement (mass/volume) 8.4 g/dL 6.4-8.2 Serum or plasma albumin measurement (mass/volume) 4.2 g/dL 3.2-4.5 CALCIUM CORRECTED 9.3 mg/dL 8.5-10.1 Serum or plasma amylase measurement (enz ymatic activity/volume) - 10/09/19 21:55 Serum or plasma amylase measurement (enzymatic activit y/volume) 55 U/L 25-125 Lipase - 10/09/19 21:55 Lipase 19 U/L 8-78 Complete urinalysis with reflex to cultu re - 10/09/19 22:25 Urine color determination YELLOW NRG Urine clarity determination CLEAR NR G Urine pH measurement by test strip 5.5 5-9 Specific gravity of urine by test strip >= 1.016-1.022 Urine protein assay by test strip, semi-quantitative 1+ NEGATIVE Urine glucose detection by automated test strip NE GATIVE NEGATIVE Erythrocytes detection in urine sediment by light micr oscopy NEGATIVE NEGATIVE Urine ketones detection by automated test strip NE GATIVE NEGATIVE Urine nitrite detection by test strip NEGATIVE NEGATIVE Urine total bilirubin detection by test strip 1+ NEGATIVE Urine urobilinogen measurement by automated test strip (mass/volume) 1.0 mg/dL < = 1.0 Urine leukocyte esterase detection by dipstick NEG ATIVE NEGATIVE Automated urine sediment erythrocyte cou nt by microscopy (number/high power field) [HPF] NRG Automated urine sediment leukocyte count by microscopy (number/high power field) [HPF] NRG Bacteria detection in urine sediment by light microsco py TRACE NRG Crystals detection in urine sediment by light microsco py PRESENT NRG Casts detection in urine sediment by light microscopy NONE NRG Mucus detection in urine sediment by light microscopy SMALL NRG Complete urinalysis with reflex to culture NO NRG Amorphous sediment detection in urine sediment by ligh t microscopy FEW CECILIO URATES NR Encounters ACCT No. Visit Date/Time Discharge Status Pt. Type Provider Facility Loc./Unit Complaint [id number] 09/23/2019 12:50:00 23:59:59 CLS Outpatient WEN STERLING, VICTORIA Paz [facility] RAD HX SAKSHI YAP RMATION [id number] 01/29/2019 16:51:00 18:27:00 DIS Emergency ROBERTO BOWEN APRN [facility] ER HAD SEIZURE [id number] 05/21/2018 22:24:00 00:49:00 DIS Emergency YAJAIRA DOPATRICK [facility] ER SEIZURE [id number] 03/28/2018 17:25:00 018 19:25:00 DIS Emergency MARCO BOLTON MD [facility] ER ABD PAIN [id number] 03/27/2018 16:22:00 018 18:48:00 DIS Emergency YAJAIRA DOPATRICK [facility] ER ABD PAIN [id number] 02/25/2018 21:06:00 018 22:45:00 DIS Emergency IRINEO PAYAN [facility] ER SEIZURE [id number] 02/11/2018 17:57:00 018 19:18:00 DIS Emergency MARCO BOLTON MD [facility] ER SIZURE,FELL ON STEP STOOL,SOB [id number] 01/21/2018 20:32:00 018 21:48:00 DIS Emergency ROBERTO BOWEN APRN [facility] ER SEIZURE/R SIDE PAIN/INJ [id number] 12/24/2017 11:30:00 018 23:59:59 CLS Outpatient VICTORIA CARVER MD [facility] RAD HIT RT SIDE OF HEAD, SIEZURE [id number] 08/18/2017 21:07:00 018 23:19:00 DIS Emergency KASSIE STERLING, MAYDA Osorio [facility] ER SEIZURE [id number] 07/11/2017 04:52:00 018 06:12:00 DIS Emergency CHE STERLING, MARCO Moran [facility] ER SEIZURE [id number] 06/07/2017 22:03:00 018 01:15:00 DIS Emergency KASSIE STERLING, MAYDA Osorio [facility] ER SEIZURE [id number] 05/23/2017 23:49:00 018 01:25:00 DIS Emergency CHE STERLING, MARCO Moran [facility] ER SEIZURE [id number] 03/13/2017 05:27:00 017 08:29:00 DIS Emergency CHE STERLING, MARCO Moran [facility] ER SEIZURE [id number] 02/27/2017 23:14:00 017 00:31:00 DIS Emergency PATRICK GATES DO a [facility] ER SEIZURE [id number] 01/08/2017 23:29:00 017 01:01:00 DIS Emergency KASSIE STERLING, MAYDA Osorio [facility] ER SEIZURE [id number] 10/09/2019 22:23:00 Document Registration
== END 2019-10-09 23:10 | disposition home or self-care (01) ==
LOC: EDUNIT# 21:13 → ER 21:15
DX: R11.2 Nausea with vomiting, unspecified (principal); K02.9 Dental caries, unspecified; Z88.2 Allergy status to sulfonamides
CPT/HCPCS: 36415; 80053; 81000; 82150; 83690; 84703; 85025